=== PATIENT | male | born 1955 | race Hispanic/Latino ===

== ENCOUNTER 2017-11-04 20:48 | Inpatient (IN) | payer MEDICAID ==
[2017-11-04] MEDS ORDERED: Sodium Chloride 0.9% 1,000 ML IV STA ×2 (21:27→23:42)
--- NOTE | 2017-11-04 22:19 | ED PDOC ---
Arrival/HPI - General Historian: Patient, Family - History of Present Illness Time/Duration: 4-6 hours Symptom Onset: Sudden Symptom Course: Unchanged Activities at Onset: Rest <Rudolph Madsen - Last Filed: 11/04/17 23:36> <Baldemar Gracia - Last Filed: 11/05/17 00:26> - General Chief Complaint: Syncope Time Seen by Provider: 11/04/17 20:54 - History of Present Illness Narrative History of Present Illness (Text): 11/04/17 22:15 Patient is 62M with a PMH of alcoholic cirrhosis comes to the ED after a fall 2/ 2 to syncope episode at home. Patient states that he was standing at home, felt dizzy, passed out and hit his head on a vase. His roommate came home and called the ambulance. Patient denies any palpitations, chest pain, blurry vision, weakness or numbness. Denies any prior episodes. Patient was unconscious for an unknown amount of time. (Rudolph Madsen) Past Medical History - Infectious Disease Hx of Infectious Diseases: None - Psychiatric Hx Substance Use: No - Anesthesia Hx Anesthesia: No <Rudolph Madsen - Last Filed: 11/04/17 23:36> - Provider Review Nursing Documentation Reviewed: Yes <Baldemar Gracai - Last Filed: 11/05/17 00:26> Family/Social History Family/Social History: Unknown Family HX Smoking Status: Unknown If Ever Smoked Hx Alcohol Use: Yes Frequency of alcohol use: Few days per week Hx Substance Use: No <Rudolph Madsen - Last Filed: 11/04/17 23:36> - Physician Review Nursing Documentation Reviewed: Yes Family/Social History: Unknown Family HX <Baldemar Gracia - Last Filed: 11/05/17 00:26> Allergies/Home Meds <Rudolph Madsen - Last Filed: 11/04/17 23:36> <Baldemar Gracia - Last Filed: 11/05/17 00:26> Allergies/Adverse Reactions: Allergies No Known Allergies Allergy (Verified 10/29/17 15:51) Home Medications: Home Meds Medication Instructions Recorded Confirmed Unobtainable 11/04/17 11/04/17 Review of Systems - Review of Systems Constitutional: Normal Eyes: absent: Vision Changes, Photophobia ENT: Normal Respiratory: Normal. absent: SOB, Cough Cardiovascular: Normal. absent: Chest Pain Gastrointestinal: Normal. absent: Abdominal Pain Genitourinary Male: Normal Musculoskeletal: Normal Skin: Normal Neurological: Dizziness. absent: Headache Endocrine: Normal Hemo/Lymphatic: Normal Psychiatric: Normal <Rudolph Madsen - Last Filed: 11/04/17 23:36> - Physician Review All systems were reviewed & negative as marked: Yes <SamiaBaldemar - Last Filed: 11/05/17 00:26> Physical Exam Temperature: Afebrile Blood Pressure: Normal Pulse: Regular Respiratory Rate: Normal Appearance: Positive for: Well-Appearing, Comfortable. No: Non-Toxic Pain Distress: None Mental Status: Positive for: Alert and Oriented X 3 - Systems Exam Head: Present: Laceration (2 cm laceration on the posterior aspect of the skull) Pupils: Present: PERRL Extroacular Muscles: Present: EOMI Conjunctiva: Present: Normal Mouth: Present: Moist Mucous Membranes Neck: Present: Normal Range of Motion Respiratory/Chest: Present: Clear to Auscultation Cardiovascular: Present: Regular Rate and Rhythm, Normal S1, S2. No: Murmurs Abdomen: Present: Normal Bowel Sounds. No: Tenderness, Distention, Peritoneal Signs Upper Extremity: Present: Normal Inspection. No: Cyanosis, Edema Lower Extremity: Present: Normal Inspection. No: Edema Neurological: Present: GCS=15, CN II-XII Intact, Speech Normal, Motor Func Grossly Intact, Normal Sensory Function, Norm Deep Tendon Reflexes, Memory Normal Skin: Present: Warm, Dry, Normal Color. No: Rashes Psychiatric: Present: Alert, Oriented x 3 <Rudolph Madsen - Last Filed: 11/04/17 23:36> Medical Decision Making <Rudolph Madsen - Last Filed: 11/04/17 23:36> <SamiaBaldemar - Last Filed: 11/05/17 00:26> ED Course and Treatment: 11/04/17 22:23 patient with syncope and head laceration after hitting his head * head CT * cbc, cmp, cxr, ekg, alcohol level, UDS * placed 4 scarlett in the laceration on the back of the head 11/04/17 23:36 * potassium elevated at 7.2 with Cr. 4.4 * gave insulin, albuterol, bicarb and kayexelate * admit to hospitalist, spoke with medical biller coder (Rudolph Madsen) Impression: Pt seen and evaluated with medical biller coder. Pt, whose past medical history includes alcoholic cirrhosis, presented s/p syncopal episode and fall prior to arrival. Aware and agree with HPI, clinical findings, plan, and management. Laceration repair performed by resident under my supervision. Plan: -- CT Head w/o contrast -- EKG -- Chest X-ray -- Labs, alcohol level -- Urinalysis -- IV fluids -- Reassess and disposition 11/04/17 23:[address] Navarro and medical biller coder director construction services. Aware and agree with plan. Accepts pt in to hospitalist service. (Baldemar Gracia) - Lab Interpretations Lab Results: 11/04/17 21:47 11/04/17 21:47 Lab Results 11/04/17 21:47: Lactate Dehydrogenase 899 H, Total Creatine Kinase 127, Troponin I 0.06 11/04/17 21:47: Alcohol, Quantitative < 10 11/04/17 21:47: Sodium 122 L, Potassium 7.2 H*, Chloride 88 L, Carbon Dioxide 21 , Anion Gap 21 H, BUN 142 H*, Creatinine 4.4 H, Est GFR ( Amer) 17, Est GFR (Non-Af Amer) 14, Random Glucose 101, Calcium 10.6 H, Total Bilirubin 5.6 H , AST 99 H, ALT 49, Alkaline Phosphatase 83, Total Protein 6.8, Albumin 3.5, Globulin 3.3, Albumin/Globulin Ratio 1.0 L 11/04/17 21:47: WBC 8.4, RBC 2.70 L, Hgb 9.4 L, Hct 26.0 L, MCV 96.3, MCH 34.8, MCHC 36.2, RDW 17.0 H, Plt Count 175, MPV 9.6, Gran % 78.5 H, Lymph % (Auto) 9.8 L, [place] % (Auto) 11.7 H, Eos % (Auto) 0.0 L, Baso % (Auto) 0.0, Gran # 6.59 H, Lymph # (Auto) 0.8 L, [place] # (Auto) 1.0 H, Eos # (Auto) 0.0, Baso # (Auto) 0.00 - RAD Interpretation Radiology Orders: 11/04/17 21:27 HEAD W/O CONTRAST [CT] Stat CHEST PORTABLE [RAD] Stat - Medication Orders Current Medication Orders: Sodium Chloride (Sodium Chloride 0.9%) 1,000 mls @ 100 mls/hr IV .Q10H ALEXIS Sodium Chloride (Sodium Chloride 0.9%) 1,000 mls @ 999 mls/hr IV .Q1H1M STA Stop: 11/05/17 00:42 Discontinued Medications Acetaminophen (Tylenol 325mg Tab) 650 mg PO STAT STA Stop: 11/04/17 22:59 Albuterol Sulfate (Albuterol 0.5% Inhal Gisela (2.5 Mg/0.5 Ml) Ud) 10 mg IH STAT STA Stop: 11/04/17 23:20 Dextrose (Dextrose 50% Inj) 50 ml IVP ONCE ONE Stop: 11/04/17 23:20 Sodium Chloride (Sodium Chloride 0.9%) 1,000 mls @ 999 mls/hr IV .Q1H1M STA Stop: 11/04/17 22:27 Last Admin: 11/04/17 22:40 Dose: 999 mls/hr eMAR Start Stop Document 11/04/17 22:40 GMD (Rec: 11/04/17 22:40 GMD [id number]) Intravenous Solution Start Date 11/04/17 Start Time 22:40 End Date 11/04/17 End time 23:40 Total Infusion Time 60 Sodium Chloride (Sodium Chloride 0.9%) 1,000 mls @ 999 mls/hr IV .Q1H1M STA Stop: 11/05/17 00:21 Insulin Human Regular (Humulin R) 10 units IVP STAT STA Stop: 11/04/17 23:20 Sodium Bicarbonate (Sodium Bicarbonate 8.4% (50 Meq) Syringe) 50 meq IVP ONCE ONE Stop: 11/04/17 23:20 Sodium Polystyrene Sulfonate (Kayexalate Susp) 30 gm PO ONCE ONE Stop: 11/04/17 23:21 - PA / MAIL SORTING SUPERVISOR / Resident Statement MD/DO has reviewed & agrees with the documentation as recorded. MD/DO has examined the patient and agrees with the treatment plan. <Rudolph Madsen - Last Filed: 11/04/17 23:36> Disposition/Present on Arrival - Present on Arrival Any Indicators Present on Arrival: No History of DVT/PE: No History of Uncontrolled Diabetes: No Urinary Catheter: No History of Decub. Ulcer: No History Surgical Site Infection Following: None - Disposition Have Diagnosis and Disposition been Completed?: Yes Disposition Time: 23:40 Patient Plan: Admission <Rudolph Madsen - Last Filed: 11/04/17 23:36> <Baldemar Gracia - Last Filed: 11/05/17 00:26> - Disposition Diagnosis: Hyperkalemia, Acute kidney failure, Fall, Laceration of head, Syncope Disposition: HOSPITALIZED Patient Problems: Current Active Problems Problem Status Onset Acute kidney failure Acute Fall Acute Hyperkalemia Acute Laceration of head Acute Syncope Acute Condition: GUARDED Discharge Instructions (ExitCare): Syncope (ED) Additional Instructions: remove scarlett in 5 days. Referrals: PCP,NO [Primary Care Provider] - Follow up with primary Forms: [employer] ([place]ian)
[2017-11-04 22:45] LABS: GRAN # 6.59 (1.4-6.5); GRAN % 78.5 % (50.0-68.0); HEMOGLOBIN 9.4 g/dL (14.0-18.0); LYMPH # 0.8 (1.2-3.4); LYMPH % 9.8 % (22.0-35.0); MEAN CELL VOLUME 96.3 fl (80.0-105.0); MEAN CORPUSCULAR HEMOGLOBIN 34.8 pg (25.0-35.0); MEAN CORPUSCULAR HGB CONC 36.2 g/dl (31.0-37.0); MEAN PLATELET VOLUME 9.6 fl (7.0-11.0); MONO % 11.7 % (1.0-6.0); RBC 2.7 10^6/uL (3.5-6.1); WHITE BLOOD COUNT 8.4 10^3/ul (4.5-11.0)
[2017-11-04 23:14] LABS: ALBUMIN 3.5 g/dL (3.0-4.8); CALCIUM 10.6 mg/dL (8.4-10.5)
[2017-11-04] MEDS ORDERED: Dextrose 50% SYRINGE Inj (50 ml) IVP ONE (23:19)
[2017-11-04 23:46] LABS: TROPONIN I 0.06 ng/mL
[2017-11-05] MEDS: Sod Polystyrene Sulf 15 gm/60 ml Susp PO ONE ×2 (00:45→05:54)
[2017-11-05] MEDS: Albuterol 0.5% Inhal Sol (2.5 mg/0.5 ml) UD IH STA ×2 (00:51→05:51)
[2017-11-05] MEDS: Sodium Chloride 0.9% 1,000 ML IV STA ×3 (00:52→05:54)
[2017-11-05] MEDS: Sodium Bicarbonate (8.4%) 50 Meq Syringe IVP ONE ×2 (00:53→05:54)
[2017-11-05] MEDS: Insulin Regular 1 UNITS/0.01 ML ML IVP STA ×3 (00:54→06:36)
--- NOTE | 2017-11-05 01:32 | CT ---
EXAM: CT Head Without Intravenous Contrast CLINICAL HISTORY: 62 years old, male; Signs and symptoms; Syncope and collapse TECHNIQUE: Axial computed tomography images of the head/brain without intravenous contrast. All CT scans at this facility use one or more dose reduction techniques, viz.: automated exposure control; ma/kV adjustment per patient size (including targeted exams where dose is matched to indication; i.e. head); or iterative reconstruction technique. Coronal and sagittal reformatted images were created and reviewed. COMPARISON: No relevant prior studies available. FINDINGS: Brain: Moderate atrophy. No intracranial hemorrhage. No mass. Minimal decreased attenuation within periventricular white matter. No definite edema. Ventricles: No hydrocephalus. Bones/joints: No acute fracture. Soft tissues: Mild scalp swelling. Skin scarlett. Dermal calcifications. Vasculature: Mild atherosclerotic disease of intracranial arteries. Sinuses: Mucosal thickening of visualized RIGHT ethmoid sinus. Mastoid air cells: No mastoid effusion. Orbits: Unremarkable as visualized. IMPRESSION: 1. Nonspecific white matter changes. Acute infarction may be CT occult within first 24 hours. If a focal deficit persists, consider followup CT or MRI for further evaluation. 2. Incidental/non-acute findings are described above.
[2017-11-05] MEDS: Sodium Chloride 0.9% 1,000 ML IV SCH ×3 (01:52→13:40)
[2017-11-05] MEDS: Metoprolol 1 mg/ml Inj IVP STA ×2 (01:53→05:54)
[2017-11-05 02:49] LABS: IRON 74 ug/dL (45-180)
[2017-11-05 02:58] LABS: % IRON SATURATION 39 % (20-55); TOTAL IRON BINDING CAPACITY 192 ug/dL (261-462)
[2017-11-05 03:53] LABS: URINE BILIRUBIN NEGATIVE (NEGATIVE); URINE BLOOD MODERATE (NEGATIVE); URINE GLUCOSE (UA) NEGATIVE (NEGATIVE); URINE LEUKOCYTE ESTERASE NEGATIVE Leu/uL (NEGATIVE); URINE PROTEIN 30 mg/dL (<30 mg/dL); URINE UROBILINOGEN 0.2 E.U./dL (<1 E.U./dL)
--- NOTE | 2017-11-05 03:53 | CP.PCM.HP ---
<George Cali - Last Filed: 11/05/17 03:34> History of Present Illness - History of Present Illness History of Present Illness: CC: Syncope Pt is a 62 yo M with PMH of alcoholic cirrhosis presents to [facility] due to fall 2/2 to syncopal episode at home. Pt states that he had been feeling dizzy, possibly from standing up too quickly, when he passed out and hit the back of his head on a vase. Pt's roommate called EMS. Pt does not recall how long he was unconscious for. In the ED, clau were placed for laceration to occipital region of patient's head. Pt still complains of some head pain, but denies current dizziness, change in vision, hearing, smell, shortness of breath, chest pain, weakness, numbness, fever, or CORTES. Patient states that he has had several admissions at another hospital for ascites and has had seven paracenteses overall. Pt also states that on prior admissions he has had many electrolyte abnormalities that had to be corrected. PMH: alcoholic cirrhosis Surg: Paracentesis x7 All: NKDA FHx: Father lung CA, Mother CHF SH: Admits to 1 bottle whiskey/daily (last drink 07/19/17), 3 cig/day for 20 yrs ; denies illicit drug use Present on Admission - Present on Admission Any Indicators Present on Admission: No Review of Systems - Review of Systems Review of Systems: 12 point ROS reviewed and is negative other than what is stated in HPI. Past Patient History - Infectious Disease Hx of Infectious Diseases: None - Past Social History Smoking Status: Unknown If Ever Smoked - PSYCHIATRIC Hx Substance Use: No - ANESTHESIA Hx Anesthesia: No Meds Allergies/Adverse Reactions: Allergies Allergy/AdvReac Type Severity Reaction Status Date / Time No Known Allergies Allergy Verified 10/29/17 15:51 Physical Exam - Constitutional Appears: No Acute Distress - Head Exam Head Exam: NORMAL INSPECTION - Eye Exam Eye Exam: Normal appearance - ENT Exam ENT Exam: Mucous Membranes Dry - Neck Exam Neck exam: Positive for: Normal Inspection - Respiratory Exam Respiratory Exam: Clear to Auscultation Bilateral. absent: Rales, Rhonchi, Wheezes - Cardiovascular Exam Cardiovascular Exam: Tachycardia, +S1, +S2. absent: Diastolic murmur, Gallop, Rubs, Systolic Murmur - GI/Abdominal Exam GI & Abdominal Exam: Distended, Normal Bowel Sounds, Soft, Tenderness. absent: Guarding, Rebound Additional comments: Positive fluid wave, healing site in RLQ from prior paracentesis with some surrounding ecchymosis - Extremities Exam Extremities exam: Positive for: normal inspection Additional comments: No palmar erythema - Back Exam Back exam: NORMAL INSPECTION - Neurological Exam Neurological exam: Alert, CN II-XII Intact, Oriented x3 - Skin Skin Exam: Petechiae (chest) Additional comments: No spider angiomas or caput medusa noted Results - Vital Signs Recent Vital Signs: Last Vital Signs Temp 97.6 F 11/05/17 00:15 Pulse 90 11/05/17 02:28 Resp 16 11/05/17 02:28 BP 104/68 11/05/17 02:28 Pulse Ox 100 11/05/17 02:28 - Labs Result Diagrams: 11/04/17 21:47 11/04/17 21:47 Labs: Laboratory Results - last 24 hr 11/04/17 11/04/17 11/04/17 21:47 21:47 21:47 WBC 8.4 RBC 2.70 L Hgb 9.4 L Hct 26.0 L MCV 96.3 MCH 34.8 MCHC 36.2 RDW 17.0 H Plt Count 175 MPV 9.6 Gran % 78.5 H Lymph % (Auto) 9.8 L [place] % (Auto) 11.7 H Eos % (Auto) 0.0 L Baso % (Auto) 0.0 Gran # 6.59 H Lymph # (Auto) 0.8 L [place] # (Auto) 1.0 H Eos # (Auto) 0.0 Baso # (Auto) 0.00 Retic Count Sodium 122 L Potassium 7.2 H* Chloride 88 L Carbon Dioxide 21 Anion Gap 21 H BUN 142 H* Creatinine 4.4 H Est GFR ( Amer) 17 Est GFR (Non-Af Amer) 14 Random Glucose 101 Calcium 10.6 H Phosphorus Magnesium Iron TIBC % Saturation Total Bilirubin 5.6 H AST 99 H ALT 49 Alkaline Phosphatase 83 Ammonia Lactate Dehydrogenase Total Creatine Kinase Troponin I Total Protein 6.8 Albumin 3.5 Globulin 3.3 Albumin/Globulin Ratio 1.0 L Alcohol, Quantitative < 10 11/04/17 11/05/17 11/05/17 21:47 02:20 02:20 WBC RBC Hgb Hct MCV MCH MCHC RDW Plt Count MPV Gran % Lymph % (Auto) [place] % (Auto) Eos % (Auto) Baso % (Auto) Gran # Lymph # (Auto) [place] # (Auto) Eos # (Auto) Baso # (Auto) Retic Count 2.53 H Sodium Potassium Chloride Carbon Dioxide Anion Gap BUN Creatinine Est GFR ( Amer) Est GFR (Non-Af Amer) Random Glucose Calcium Phosphorus Magnesium Iron TIBC % Saturation Total Bilirubin AST ALT Alkaline Phosphatase Ammonia 73 H Lactate Dehydrogenase 899 H Total Creatine Kinase 127 Troponin I 0.06 Total Protein Albumin Globulin Albumin/Globulin Ratio Alcohol, Quantitative 11/05/17 11/05/17 02:20 02:20 WBC RBC Hgb Hct MCV MCH MCHC RDW Plt Count MPV Gran % Lymph % (Auto) [place] % (Auto) Eos % (Auto) Baso % (Auto) Gran # Lymph # (Auto) [place] # (Auto) Eos # (Auto) Baso # (Auto) Retic Count Sodium Potassium Chloride Carbon Dioxide Anion Gap BUN Creatinine Est GFR ( Amer) Est GFR (Non-Af Amer) Random Glucose Calcium Phosphorus 6.6 H Magnesium 3.0 H Iron 74 TIBC 192 L % Saturation 39 Total Bilirubin AST ALT Alkaline Phosphatase Ammonia Lactate Dehydrogenase Total Creatine Kinase Troponin I Total Protein Albumin Globulin Albumin/Globulin Ratio Alcohol, Quantitative Assessment & Plan - Assessment and Plan (Free Text) Assessment: 62 yo M with PMH of alcoholic cirrhosis admitted for syncopal episode and several electrolyte abnormalities. Plan: 1. Syncope - Cardiology consulted - Neurology consulted - Clau in occipital region placed in ED - Head CT showed nonspecific white matter changes, no intracranial bleed - Troponin x3 trend - Carotid doppler ordered - Echo ordered - Orthostatics ordered 2. Electrolyte Abnormalities - Hyponatremia, hypochloremia Given 3L NS in ED Cont maintenance NS - Hyperkalemia Given insulin and d50, kayxelate, and bicarb in ED Calcium gluconate ordered EKG: no signs of elevated T-waves Recheck BMP q4h - Elevated magnesium, phos likely 2/2 dehydration - Cont to monitor and treat as needed 3. CAMILO - Nephrology consulted - BUN/Cr consistent with prerenal nephropathy likely 2/2 severe dehydration - 3L NS given in ED, cont maintenance at 100 cc/hr - Urine Na, Cr, urea, osmolality ordered 4. Alcoholic cirrhosis - GI consulted - Most recent ascites fulid analysis on 10/29/17 showed no signs of SBP as PMN 26 - Elevated ammonia levels, no signs of AMS - Lactulose and rifaximin ordered 5. Anemia - Normocytic - Likely 2/2 chronic disease - Iron studies, B12, folate, retic ordered - Elevated LDH and total bilirubin - Haptoglobin and direct bilirubin ordered - Peripheral smear ordered GI/DVT PPX - Protonix - SCDs Pt seen and discussed in detail with Dr. Navarro. Oscar Cali, PGY1 <Christiana Navarro - Last Filed: 11/05/17 06:34> Results - Vital Signs Recent Vital Signs: Last Vital Signs Temp 97.4 F L 11/05/17 04:06 Pulse 91 H 11/05/17 04:06 Resp 19 11/05/17 04:06 BP 94/55 L 11/05/17 04:06 Pulse Ox 100 11/05/17 02:28 - Labs Result Diagrams: 11/05/17 05:30 11/05/17 02:20 Labs: Laboratory Results - last 24 hr 11/05/17 11/05/17 11/05/17 02:20 02:20 02:20 WBC RBC Hgb Hct MCV MCH MCHC RDW Plt Count MPV Gran % Lymph % (Auto) [place] % (Auto) Eos % (Auto) Baso % (Auto) Gran # Lymph # (Auto) [place] # (Auto) Eos # (Auto) Baso # (Auto) Retic Count 2.53 H Sodium Potassium Chloride Carbon Dioxide Anion Gap BUN Creatinine Est GFR ( Amer) Est GFR (Non-Af Amer) Random Glucose Calcium Phosphorus 6.6 H Magnesium 3.0 H Iron TIBC % Saturation Direct Bilirubin Ammonia 73 H Troponin I Urine Color Urine Appearance Urine pH Ur Specific [place] Urine Protein Urine Glucose (UA) Urine Ketones Urine Blood Urine Nitrate Urine Bilirubin Urine Urobilinogen Ur Leukocyte Esterase Urine RBC Urine WBC Ur Epithelial Cells Hyaline Casts 11/05/17 11/05/17 11/05/17 02:20 02:20 02:45 WBC RBC Hgb Hct MCV MCH MCHC RDW Plt Count MPV Gran % Lymph % (Auto) [place] % (Auto) Eos % (Auto) Baso % (Auto) Gran # Lymph # (Auto) [place] # (Auto) Eos # (Auto) Baso # (Auto) Retic Count Sodium 122 L Potassium 6.3 H* Chloride 92 L Carbon Dioxide 19 L Anion Gap 18 BUN 140 H* Creatinine 4.0 H Est GFR ( Amer) 18 Est GFR (Non-Af Amer) 15 Random Glucose 115 H Calcium 9.9 Phosphorus Magnesium Iron 74 TIBC 192 L % Saturation 39 Direct Bilirubin Ammonia Troponin I 0.07 Urine Color Yellow Urine Appearance Sl cloudy Urine pH 6.0 Ur Specific [place] 1.020 Urine Protein 30 H Urine Glucose (UA) Negative Urine Ketones Negative Urine Blood Moderate H Urine Nitrate Negative Urine Bilirubin Negative Urine Urobilinogen 0.2 Ur Leukocyte Esterase Negative Urine RBC 2 - 5 Urine WBC 0 - 2 Ur Epithelial Cells 0 - 2 Hyaline Casts 0 - 2 11/05/17 11/05/17 05:30 05:30 WBC 10.0 RBC 2.37 L Hgb 8.3 L Hct 22.7 L MCV 95.8 MCH 35.0 MCHC 36.6 RDW 17.0 H Plt Count 148 MPV 9.1 Gran % 73.2 H Lymph % (Auto) 11.8 L [place] % (Auto) 14.8 H Eos % (Auto) 0.1 L Baso % (Auto) 0.1 Gran # 7.34 H Lymph # (Auto) 1.2 [place] # (Auto) 1.5 H Eos # (Auto) 0.0 Baso # (Auto) 0.01 Retic Count Sodium Potassium Chloride Carbon Dioxide Anion Gap BUN Creatinine Est GFR ( Amer) Est GFR (Non-Af Amer) Random Glucose Calcium Phosphorus Magnesium Iron TIBC % Saturation Direct Bilirubin 1.7 H Ammonia Troponin I Urine Color Urine Appearance Urine pH Ur Specific [place] Urine Protein Urine Glucose (UA) Urine Ketones Urine Blood Urine Nitrate Urine Bilirubin Urine Urobilinogen Ur Leukocyte Esterase Urine RBC Urine WBC Ur Epithelial Cells Hyaline Casts Attending/Attestation - Attestation I have personally seen and examined this patient.: Yes I have fully participated in the care of the patient.: Yes I have reviewed all pertinent clinical information: Yes Notes (Text): 11/05/17 06:33 Patient was seen when he was in the ER. Agree with history , physical examination, assessment and plan. syncope. Dizziness. Hyperkalemia. Acute renal failure. Loss of consciousness. Cirrhosis of liver. Alcohol abuse. Laceration of occipital scalp. Anemia. Ascites. Sinus tachcardia.
[2017-11-05 04:16] LABS: URINE APPEARANCE SL CLOUDY (CLEAR); URINE COLOR YELLOW (YELLOW)
[2017-11-05 04:20] LABS: URINE EPITHELIAL CELLS 0 - 2 /hpf (0-5); URINE HYALINE CAST 0 - 2 /hpf; URINE WBC 0 - 2 /hpf (0-6)
[2017-11-05 04:21] LABS: TROPONIN I 0.07 ng/mL
[2017-11-05 05:31] LABS: CALCIUM 9.9 mg/dL (8.4-10.5)
[2017-11-05] MEDS ORDERED: Dextrose 50% SYRINGE Inj (50 ml) IVP ONE (05:41)
[2017-11-05] MEDS ORDERED: Sod Polystyrene Sulf 15 gm/60 ml Susp PO STA (05:41)
[2017-11-05] MEDS ORDERED: Insulin Regular 1 UNITS/0.01 ML ML SC STA (05:41)
[2017-11-05] MEDS ORDERED: Sodium Bicarbonate (8.4%) 50 Meq Syringe IVP STA (05:42)
[2017-11-05] MEDS ORDERED: Insulin Regular 1 UNITS/0.01 ML ML IVP STA (05:56)
--- NOTE | 2017-11-05 06:09 | PCM.PROC ---
Procedures Attestation:: I certify that I have explained the specified Operation(s) or Procedure(s), risks, benefits and reasonable alternatives to the Patient and/or other person responsible. The opportunity was given to ask questions and all questions answered - Laceration simple, single layer linear deep structures intact scalp other other other other other other Site: scalp Size (cm): 2 Description: linear Depth: simple, single layer Skin layer closed with: other (4 scarlett)
[2017-11-05 06:21] LABS: BASO # 0.01 K/mm3 (0.0-2.0); BASO % 0.1 % (0.0-3.0); EOS % 0.1 % (1.5-5.0); GRAN # 7.34 (1.4-6.5); GRAN % 73.2 % (50.0-68.0); HEMOGLOBIN 8.3 g/dL (14.0-18.0); LYMPH # 1.2 (1.2-3.4); LYMPH % 11.8 % (22.0-35.0); MEAN CELL VOLUME 95.8 fl (80.0-105.0); MEAN CORPUSCULAR HGB CONC 36.6 g/dl (31.0-37.0); MEAN PLATELET VOLUME 9.1 fl (7.0-11.0); MONO # 1.5 (0.1-0.6); MONO % 14.8 % (1.0-6.0); RBC 2.37 10^6/uL (3.5-6.1)
--- NOTE | 2017-11-05 08:26 | RAD ---
HISTORY: syncope COMPARISON: No prior. FINDINGS: LUNGS: No active pulmonary disease. PLEURA: No significant pleural effusion identified, no pneumothorax apparent. CARDIOVASCULAR: Normal. OSSEOUS STRUCTURES: No significant abnormalities. VISUALIZED UPPER ABDOMEN: Normal. OTHER FINDINGS: None. IMPRESSION: No active disease.
[2017-11-05] MEDS ORDERED: Albumin Human 25% (12.5 gm/50 ml) IV SCH (09:15)
--- NOTE | 2017-11-05 11:26 | CON ---
DATE: 11/05/2017 CONSULTATION INDICATIONS: A 62-year-old man with syncope in the setting of acute renal failure and hyperkalemia with a history of alcoholic cirrhosis and ascites with recent large volume paracentesis. He felt dizzy at home and fell to the floor. He lacerated his scalp. It is unclear how long he has been on the floor. He was brought to the emergency room after a friend found him. Subsequently, he has remained on telemetry. His scalp laceration was sutured. He is being treated for hyperkalemia in the setting of acute renal failure. He has known alcoholic cirrhosis with numerous paracentesis to control abdominal ascites. There is no chest pain, shortness of breath, orthopnea, PND, fever, chills, sputum production, hemoptysis, nausea, vomiting, diarrhea, constipation, melena. PAST MEDICAL HISTORY: Notable for known alcoholic cirrhosis. He has been evaluated in other hospitals. He has had numerous paracentesis done. He was a heavy drinker until 07/2017. He is a smoker. There is no history of rheumatic fever, myocardial infarction, angina, congestive heart failure, arrhythmia, stroke, TIA, diabetes or gout. MEDICATIONS AT THE TIME OF ADMISSION: Not obtainable. CURRENT MEDICATION LIST: Includes lactulose, D50, calcium gluconate, albuterol, insulin, metoprolol, pantoprazole, octreotide. ALLERGIES: THERE ARE NO MEDICATION ALLERGIES. SOCIAL HISTORY: He is a smoker. He is a former daily drinker. He lives at home. He was ambulatory. FAMILY HISTORY: Noncontributory. His mother had congestive heart failure. REVIEW OF SYSTEMS: Ten-point review of systems is otherwise unremarkable. PHYSICAL EXAMINATION: GENERAL: He is a well-developed male, in no acute distress, lying in bed on telemetry. VITAL SIGNS: Notable for sinus rhythm at 91 beats per minute. He is afebrile, blood pressure 104/68, respiratory rate 16, O2 sat 100% on room air. HEENT: Reveals no neck vein distention, thyromegaly or carotid bruits. Mucous membranes moist. Conjunctivae pale. NECK: Supple. LUNGS: Lung cortez clear. HEART: Examination of the heart revealed normal first and second heart sounds. ABDOMEN: Benign. There is ascites present. No mass, organomegaly, tenderness, rebound or guarding. EXTREMITIES: Revealed no cyanosis, clubbing or edema. NEUROLOGIC: He is awake, alert, oriented. SKIN: Warm and dry. No rash or cellulitis. PSYCHIATRIC: Normal as to mood and affect. LABORATORY DATA AND IMAGING: An EKG showed sinus rhythm with peaked T-waves in precordial leads. Chest x-ray shows no active disease. CT scan of the head showed nonspecific white matter changes, etc. White count normal. Hemoglobin 9.4, repeat 8.3; hematocrit 26, repeat 22.7; platelet count 175,000, repeat 148,000. Sodium 122; potassium 7.2, repeat 6.3. BUN 142, creatinine 4.4, repeat 140 and 4.0 respectively. Magnesium is 3.0. LFTs are mildly abnormal. Ammonia level is high. CK 127, troponin 0.06 and 0.07. Alcohol is less than 10. IMPRESSION: Kofi Dupont is a 62-year-old man with severe alcoholic liver disease, ascites, who presents with a syncopal episode at home, fall, head trauma and scalp laceration. Etiology of the fall is not clear, but may have been vasovagal or related to his multiple medical problems including renal failure and hyperkalemia and recnt larger volume paracentesis.. There is no evidence of acute myocardial infarction. No evidence of arrhythmia. He is getting evaluated by Gastroenterology, Neurology and Renal. He has been treated for hyperkalemia. I will check an echocardiogram. I will repeat his EKG. We will check him for postural vital signs and check stool for occult blood. I will follow along with you. I will make additional recommendations based on his clinical course. Edward Prater MD MARYELLEN
[2017-11-05] MEDS: Albumin Human 25% (12.5 gm/50 ml) IV SCH ×3 (11:27→18:16)
[2017-11-05 11:37] LABS: EOS % 0.3 % (1.5-5.0); GRAN # 7.62 (1.4-6.5); GRAN % 74.8 % (50.0-68.0); HEMOGLOBIN 8.1 g/dL (14.0-18.0); LYMPH # 1.2 (1.2-3.4); LYMPH % 12.1 % (22.0-35.0); MEAN CELL VOLUME 96.5 fl (80.0-105.0); MEAN CORPUSCULAR HEMOGLOBIN 35.4 pg (25.0-35.0); MEAN CORPUSCULAR HGB CONC 36.7 g/dl (31.0-37.0); MEAN PLATELET VOLUME 9.5 fl (7.0-11.0); MONO # 1.3 (0.1-0.6); MONO % 12.8 % (1.0-6.0); RBC 2.29 10^6/uL (3.5-6.1); RED CELL DISTRIBUTION WIDTH 17.2 % (11.5-14.5); WHITE BLOOD COUNT 10.2 10^3/ul (4.5-11.0)
[2017-11-05 11:44] LABS: INR 1.55 (0.93-1.08); PARTIAL THROMBOPLASTIN TIME 32.2 Seconds (25.1-36.5)
[2017-11-05 11:50] LABS: ALB/GLOB RATIO 0.9 (1.1-1.8); ALBUMIN 2.8 g/dL (3.0-4.8); CALCIUM 9.5 mg/dL (8.4-10.5); TROPONIN I 0.06 ng/mL
[2017-11-05 12:20] LABS: FOLATE > 20.0 ng/mL
[2017-11-05 14:44] LABS: CREATININE,RANDOM URINE 196 mg/dL
--- NOTE | 2017-11-05 14:50 | US ---
PROCEDURE: Bilateral carotid artery duplex ultrasound HISTORY: Carotid stenosis syncope PHYSICIAN(S): Alvaro Davis MD. TECHNIQUE: Duplex sonography and color-flow Doppler were used to evaluate the carotid bifurcations and limited segments of the vertebral arteries bilaterally. FINDINGS: There is mild smooth heterogeneous plaque noted at the carotid bifurcations bilaterally. The peak systolic velocity in the proximal right internal carotid artery is 73 cm/sec. This corresponds to a 20 to 39% proximal right ICA stenosis. Normal systolic velocities are noted in the proximal right external carotid artery. There is antegrade flow in the right vertebral artery. The peak systolic velocity in the proximal left internal carotid artery is 81 cm/sec. This corresponds to a 20 to 39% proximal left ICA stenosis. Normal systolic velocities are noted in the proximal left external carotid artery. There is antegrade flow in the left vertebral artery. IMPRESSION: 1. Bilateral 20-39% proximal ICA stenoses. 2. Antegrade flow in both vertebral arteries.
--- NOTE | 2017-11-05 15:29 | CARD ---
APPROVED REPORT EKG Measurement Heart [id number] <Conclusion> Sinus rhythm with frequent premature ventricular complexes Septal infarct, age undetermined Possible Lateral infarct, age undetermined Abnormal ECG
--- NOTE | 2017-11-05 16:13 | CP.PCM.CON ---
History of Present Illness - History of Present Illness History of Present Illness: Initial Nephrology Consultation: Assessment: critical Acute Kidney Injury (N17.9) likely due to Type 1 Hepatorenal syndrome Anemia, Hyponatremia, Hyperkalemia, acidosis cirrhosis of liver with active smoker, etoh abuse Plan maintain hemodynamics stable. Patient not on ACEI/ARB due to CAMILO and high K. avoid aldactone as well will start octreotide, midodrine and albumin. medical management of hyperkalemia d/w pt about prognosis, condition and likely need for dialysis soon. pt will accept HD if needed. pt may need renal replacement therapy soon but overall prognosis poor. consider palliative care Monitor Input/Output, daily weights and renal function with basic metabolic panel avoid correction in serum Na >6-8 meq/24 hrs avoid large volume paracentesis Dose meds/antibiotics for reduced GFR. Avoid fleets enema/magnesium based laxatives. Avoid nephrotoxins/NSAIDs/ iodinated contrast (unless needed emergently) Glycemic control Further work up/management as per primary team Thanks for allowing me to participate in care of your patient. Will follow patient with you. Please call if any Qs. d/w team Dr Lawrence Youngblood Office: [phone] Chief Complaint; syncope HPI: Pt is a 62 M with hx of cirrhosis, chronic etoh abuse and active smoker presented with complaints of fall and dizzziness, syncope. found to have severe CAMILO and renal consulted Denies OTC/herbal meds or NSAIDs No recent iodinated contrast exposure. Noted obvious episodes of low BP. says had last alcohol drink in jul 2017 recently had large volume paracentesis ROS: Cardiovascular: No chest pain. Pulmonary: No shortness of breath Gastrointestinal: denies abdominal pain No nausea. No vomiting. Genitourinary: No pain while urinating. Denies blood in urine. reports decreased UOP All other negative Physical Examination: General Appearance: Comfortable, in no acute respiratory distress, co-operative . ill appearing and debilitated, facial muscles wasted Vitals reviewed and noted as below Head; Atraumatic, normocephalic ENT: no ulcers no thrush. Tongue is midline. Oropharynx: no rash or ulcers. EYES: Pupils are equal, round and reactive to light accommodation. Eye muscles and extraocular movement intact. Sclera is anicteric. Neck; supple no lymphadenopathy, no thyromegaly or bruit Lungs: Normal respiratory rate/effort. Breath sounds bilateral equal and clear Heart: Normal rate. s1s2 normal. No rub or gallop. Extremities: no edema. No varicose veins. chronic venosus stasis changes in legs Neurological: Patient is alert, awake and oriented to person, place and time. No focal deficit. Strength bilateral appropriate and equal. has asterixis Skin: Warm and dry. Normal turgor. No rash. Palpitation: Normal elasticity for age. has spider angiomas Abdomen: Abdomen is soft. Bowel sounds +. There is no abdominal tenderness, no guarding/rigidity no organomegaly. distended/ascitic Psych: normal insight and flat affect/mood MSK: no joint tenderness or swelling. Digits and nails normal, no deformity : kidney or bladder not palpable Labs/imaging reviewed. Past medical history, past surgical history, family history, social history, allergy reviewed and noted as below Family hx: no hx of CKD. Rest non-contributory Past Patient History - Infectious Disease Hx of Infectious Diseases: None - Past Social History Smoking Status: Unknown If Ever Smoked - HEMATOLOGICAL/ONCOLOGICAL Hx Cirrhosis: Yes - MUSCULOSKELETAL/RHEUMATOLOGICAL Hx Falls: Yes - PSYCHIATRIC Hx Substance Use: No - ANESTHESIA Hx Anesthesia: No Meds Allergies/Adverse Reactions: Allergies Allergy/AdvReac Type Severity Reaction Status Date / Time No Known Allergies Allergy Verified 10/29/17 15:51 - Medications Medications: Current Medications Albumin Human (Albumin Human 25% (12.5 Gm/50 Ml)) 25 gm IV Q6 [facility] Stop: 11/06/17 06:01 Last Admin: 11/05/17 11:27 Dose: 25 gm Sodium Chloride (Sodium Chloride 0.9%) 1,000 mls @ 100 mls/hr IV .Q10H [facility] Last Admin: 11/05/17 13:40 Dose: Not Given Lactulose (Enulose) 20 gm PO HS [facility] Midodrine (Proamatine) 10 mg PO TID [facility] Last Admin: 11/05/17 11:28 Dose: 10 mg Octreotide Acetate (Sandostatin) 200 mcg SC Q8 [facility] Last Admin: 11/05/17 11:29 Dose: 200 mcg Pantoprazole Sodium (Protonix Inj) 40 mg IVP DAILY [facility] Last Admin: 11/05/17 11:29 Dose: 40 mg Rifaximin (Xifaxan) 550 mg PO BID [facility] PRN Reason: Protocol Last Admin: 11/05/17 11:29 Dose: 550 mg Results - Vital Signs Recent Vital Signs: Last Vital Signs Temp 97.4 F L 11/05/17 06:00 Pulse 91 H 11/05/17 06:00 Resp 20 11/05/17 06:00 BP 89/50 L 11/05/17 13:31 Pulse Ox 99 11/05/17 06:00 - Labs Result Diagrams: 11/05/17 11:10 11/05/17 11:10 Labs: Laboratory Results - last 24 hr 11/05/17 11/05/17 11/05/17 02:20 02:20 02:20 WBC RBC Hgb Hct MCV MCH MCHC RDW Plt Count MPV Gran % Lymph % (Auto) [place] % (Auto) Eos % (Auto) Baso % (Auto) Gran # Lymph # (Auto) [place] # (Auto) Eos # (Auto) Baso # (Auto) Retic Count 2.53 H Haptoglobin PT INR APTT Sodium Potassium Chloride Carbon Dioxide Anion Gap BUN Creatinine Est GFR ( Amer) Est GFR (Non-Af Amer) Random Glucose Serum Osmolality Calcium Phosphorus 6.6 H Magnesium 3.0 H Iron TIBC % Saturation Ferritin 566.0 Total Bilirubin Direct Bilirubin AST ALT Alkaline Phosphatase Ammonia 73 H Troponin I Total Protein Albumin Globulin Albumin/Globulin Ratio Vitamin B12 945 H Folate > 20.0 Urine Color Urine Appearance Urine pH Ur Specific [place] Urine Protein Urine Glucose (UA) Urine Ketones Urine Blood Urine Nitrate Urine Bilirubin Urine Urobilinogen Ur Leukocyte Esterase Urine RBC Urine WBC Ur Epithelial Cells Hyaline Casts Ur Random Creatinine Ur Random Sodium Ur Random Urea Nitrogn 11/05/17 11/05/17 11/05/17 02:20 02:20 02:20 WBC RBC Hgb Hct MCV MCH MCHC RDW Plt Count MPV Gran % Lymph % (Auto) [place] % (Auto) Eos % (Auto) Baso % (Auto) Gran # Lymph # (Auto) [place] # (Auto) Eos # (Auto) Baso # (Auto) Retic Count Haptoglobin PT INR APTT Sodium 122 L Potassium 6.3 H* Chloride 92 L Carbon Dioxide 19 L Anion Gap 18 BUN 140 H* Creatinine 4.0 H Est GFR ( Amer) 18 Est GFR (Non-Af Amer) 15 Random Glucose 115 H Serum Osmolality 312 H Calcium 9.9 Phosphorus Magnesium Iron 74 TIBC 192 L % Saturation 39 Ferritin Total Bilirubin Direct Bilirubin AST ALT Alkaline Phosphatase Ammonia Troponin I 0.07 Total Protein Albumin Globulin Albumin/Globulin Ratio Vitamin B12 Folate Urine Color Urine Appearance Urine pH Ur Specific [place] Urine Protein Urine Glucose (UA) Urine Ketones Urine Blood Urine Nitrate Urine Bilirubin Urine Urobilinogen Ur Leukocyte Esterase Urine RBC Urine WBC Ur Epithelial Cells Hyaline Casts Ur Random Creatinine Ur Random Sodium Ur Random Urea Nitrogn 11/05/17 11/05/17 11/05/17 02:45 05:30 05:30 WBC RBC Hgb Hct MCV MCH MCHC RDW Plt Count MPV Gran % Lymph % (Auto) [place] % (Auto) Eos % (Auto) Baso % (Auto) Gran # Lymph # (Auto) [place] # (Auto) Eos # (Auto) Baso # (Auto) Retic Count Haptoglobin < 20.0 L PT INR APTT Sodium Potassium Chloride Carbon Dioxide Anion Gap BUN Creatinine Est GFR ( Amer) Est GFR (Non-Af Amer) Random Glucose Serum Osmolality Calcium Phosphorus Magnesium Iron TIBC % Saturation Ferritin Total Bilirubin Direct Bilirubin 1.7 H AST ALT Alkaline Phosphatase Ammonia Troponin I Total Protein Albumin Globulin Albumin/Globulin Ratio Vitamin B12 Folate Urine Color Yellow Urine Appearance Sl cloudy Urine pH 6.0 Ur Specific [place] 1.020 Urine Protein 30 H Urine Glucose (UA) Negative Urine Ketones Negative Urine Blood Moderate H Urine Nitrate Negative Urine Bilirubin Negative Urine Urobilinogen 0.2 Ur Leukocyte Esterase Negative Urine RBC 2 - 5 Urine WBC 0 - 2 Ur Epithelial Cells 0 - 2 Hyaline Casts 0 - 2 Ur Random Creatinine Ur Random Sodium Ur Random Urea Nitrogn 11/05/17 11/05/17 11/05/17 05:30 11:10 11:10 WBC 10.0 10.2 RBC 2.37 L 2.29 L Hgb 8.3 L 8.1 L Hct 22.7 L 22.1 L MCV 95.8 96.5 MCH 35.0 35.4 H MCHC 36.6 36.7 RDW 17.0 H 17.2 H Plt Count 148 141 MPV 9.1 9.5 Gran % 73.2 H 74.8 H Lymph % (Auto) 11.8 L 12.1 L [place] % (Auto) 14.8 H 12.8 H Eos % (Auto) 0.1 L 0.3 L Baso % (Auto) 0.1 0.0 Gran # 7.34 H 7.62 H Lymph # (Auto) 1.2 1.2 [place] # (Auto) 1.5 H 1.3 H Eos # (Auto) 0.0 0.0 Baso # (Auto) 0.01 0.00 Retic Count Haptoglobin PT INR APTT Sodium 124 L Potassium 5.8 H* Chloride 92 L Carbon Dioxide 21 Anion Gap 17 BUN 146 H* Creatinine 4.0 H Est GFR ( Amer) 18 Est GFR (Non-Af Amer) 15 Random Glucose 99 Serum Osmolality Calcium 9.5 Phosphorus Magnesium Iron TIBC % Saturation Ferritin Total Bilirubin 4.6 H Direct Bilirubin AST 80 H ALT 49 Alkaline Phosphatase 73 Ammonia Troponin I 0.06 Total Protein 5.9 Albumin 2.8 L Globulin 3.1 Albumin/Globulin Ratio 0.9 L Vitamin B12 Folate Urine Color Urine Appearance Urine pH Ur Specific [place] Urine Protein Urine Glucose (UA) Urine Ketones Urine Blood Urine Nitrate Urine Bilirubin Urine Urobilinogen Ur Leukocyte Esterase Urine RBC Urine WBC Ur Epithelial Cells Hyaline Casts Ur Random Creatinine Ur Random Sodium Ur Random Urea Nitrogn 11/05/17 11/05/17 11:10 14:15 WBC RBC Hgb Hct MCV MCH MCHC RDW Plt Count MPV Gran % Lymph % (Auto) [place] % (Auto) Eos % (Auto) Baso % (Auto) Gran # Lymph # (Auto) [place] # (Auto) Eos # (Auto) Baso # (Auto) Retic Count Haptoglobin PT 18.0 H INR 1.55 H APTT 32.2 Sodium Potassium Chloride Carbon Dioxide Anion Gap BUN Creatinine Est GFR ( Amer) Est GFR (Non-Af Amer) Random Glucose Serum Osmolality Calcium Phosphorus Magnesium Iron TIBC % Saturation Ferritin Total Bilirubin Direct Bilirubin AST ALT Alkaline Phosphatase Ammonia Troponin I Total Protein Albumin Globulin Albumin/Globulin Ratio Vitamin B12 Folate Urine Color Urine Appearance Urine pH Ur Specific [place] Urine Protein Urine Glucose (UA) Urine Ketones Urine Blood Urine Nitrate Urine Bilirubin Urine Urobilinogen Ur Leukocyte Esterase Urine RBC Urine WBC Ur Epithelial Cells Hyaline Casts Ur Random Creatinine 196 Ur Random Sodium < 5 Ur Random Urea Nitrogn 467
--- NOTE | 2017-11-05 16:43 | CP.PCM.CON ---
History of Present Illness - History of Present Illness History of Present Illness: Mr. Dupont is a 62-year-old man, who had a large pleural effusion, and had about 11.5 liters of pleural fluid removed 6 days ago. Since then, he has been nauseous, lethargic, confused and had a syncopal episode. Labs showed acute renal failure, liver failure, and multiple electrolyte abnormalities, including hyponatremia. Review of Systems - Review of Systems All systems: reviewed and no additional remarkable complaints except Past Patient History - Infectious Disease Hx of Infectious Diseases: None - Past Social History Smoking Status: Unknown If Ever Smoked - HEMATOLOGICAL/ONCOLOGICAL Hx Cirrhosis: Yes - MUSCULOSKELETAL/RHEUMATOLOGICAL Hx Falls: Yes - PSYCHIATRIC Hx Substance Use: No - ANESTHESIA Hx Anesthesia: No Meds Allergies/Adverse Reactions: Allergies Allergy/AdvReac Type Severity Reaction Status Date / Time No Known Allergies Allergy Verified 10/29/17 15:51 - Medications Medications: Current Medications Albumin Human (Albumin Human 25% (12.5 Gm/50 Ml)) 25 gm IV Q6 [facility] Stop: 11/06/17 06:01 Last Admin: 11/05/17 11:27 Dose: 25 gm Sodium Chloride (Sodium Chloride 0.9%) 1,000 mls @ 100 mls/hr IV .Q10H [facility] Last Admin: 11/05/17 13:40 Dose: Not Given Lactulose (Enulose) 20 gm PO HS [facility] Midodrine (Proamatine) 10 mg PO TID [facility] Last Admin: 11/05/17 11:28 Dose: 10 mg Octreotide Acetate (Sandostatin) 200 mcg SC Q8 [facility] Last Admin: 11/05/17 11:29 Dose: 200 mcg Pantoprazole Sodium (Protonix Inj) 40 mg IVP DAILY [facility] Last Admin: 11/05/17 11:29 Dose: 40 mg Rifaximin (Xifaxan) 550 mg PO BID [facility] PRN Reason: Protocol Last Admin: 11/05/17 11:29 Dose: 550 mg Physical Exam - Constitutional Appears: Unkempt - Head Exam Head Exam: ATRAUMATIC, NORMAL INSPECTION, NORMOCEPHALIC - Eye Exam Eye Exam: EOMI, Normal appearance, PERRL - ENT Exam ENT Exam: Mucous Membranes Moist, Normal Exam - Neck Exam Neck exam: Positive for: Normal Inspection - Respiratory Exam Respiratory Exam: Rales, NORMAL BREATHING PATTERN - Cardiovascular Exam Cardiovascular Exam: REGULAR RHYTHM - GI/Abdominal Exam GI & Abdominal Exam: Normal Bowel Sounds, Soft. absent: Tenderness - Neurological Exam Neurological exam: Alert, CN II-XII Intact, Normal Gait, Oriented x3, Reflexes Normal Additional comments: Alert, oriented to time and person, but not certain about place. - Psychiatric Exam Psychiatric exam: Normal Affect, Normal Mood Results - Vital Signs Recent Vital Signs: Last Vital Signs Temp 97.4 F L 11/05/17 06:00 Pulse 91 H 11/05/17 06:00 Resp 20 11/05/17 06:00 BP 89/50 L 11/05/17 13:31 Pulse Ox 99 11/05/17 06:00 - Labs Result Diagrams: 11/05/17 11:10 11/05/17 11:10 Labs: Laboratory Results - last 24 hr 11/05/17 11/05/17 11/05/17 02:20 02:20 02:20 WBC RBC Hgb Hct MCV MCH MCHC RDW Plt Count MPV Gran % Lymph % (Auto) [place] % (Auto) Eos % (Auto) Baso % (Auto) Gran # Lymph # (Auto) [place] # (Auto) Eos # (Auto) Baso # (Auto) Retic Count 2.53 H Haptoglobin PT INR APTT Sodium Potassium Chloride Carbon Dioxide Anion Gap BUN Creatinine Est GFR ( Amer) Est GFR (Non-Af Amer) Random Glucose Serum Osmolality Calcium Phosphorus 6.6 H Magnesium 3.0 H Iron TIBC % Saturation Ferritin 566.0 Total Bilirubin Direct Bilirubin AST ALT Alkaline Phosphatase Ammonia 73 H Troponin I Total Protein Albumin Globulin Albumin/Globulin Ratio Vitamin B12 945 H Folate > 20.0 Urine Color Urine Appearance Urine pH Ur Specific [place] Urine Protein Urine Glucose (UA) Urine Ketones Urine Blood Urine Nitrate Urine Bilirubin Urine Urobilinogen Ur Leukocyte Esterase Urine RBC Urine WBC Ur Epithelial Cells Hyaline Casts Ur Random Creatinine Ur Random Sodium Ur Random Urea Nitrogn 11/05/17 11/05/17 11/05/17 02:20 02:20 02:20 WBC RBC Hgb Hct MCV MCH MCHC RDW Plt Count MPV Gran % Lymph % (Auto) [place] % (Auto) Eos % (Auto) Baso % (Auto) Gran # Lymph # (Auto) [place] # (Auto) Eos # (Auto) Baso # (Auto) Retic Count Haptoglobin PT INR APTT Sodium 122 L Potassium 6.3 H* Chloride 92 L Carbon Dioxide 19 L Anion Gap 18 BUN 140 H* Creatinine 4.0 H Est GFR ( Amer) 18 Est GFR (Non-Af Amer) 15 Random Glucose 115 H Serum Osmolality 312 H Calcium 9.9 Phosphorus Magnesium Iron 74 TIBC 192 L % Saturation 39 Ferritin Total Bilirubin Direct Bilirubin AST ALT Alkaline Phosphatase Ammonia Troponin I 0.07 Total Protein Albumin Globulin Albumin/Globulin Ratio Vitamin B12 Folate Urine Color Urine Appearance Urine pH Ur Specific [place] Urine Protein Urine Glucose (UA) Urine Ketones Urine Blood Urine Nitrate Urine Bilirubin Urine Urobilinogen Ur Leukocyte Esterase Urine RBC Urine WBC Ur Epithelial Cells Hyaline Casts Ur Random Creatinine Ur Random Sodium Ur Random Urea Nitrogn 11/05/17 11/05/17 11/05/17 02:45 05:30 05:30 WBC RBC Hgb Hct MCV MCH MCHC RDW Plt Count MPV Gran % Lymph % (Auto) [place] % (Auto) Eos % (Auto) Baso % (Auto) Gran # Lymph # (Auto) [place] # (Auto) Eos # (Auto) Baso # (Auto) Retic Count Haptoglobin < 20.0 L PT INR APTT Sodium Potassium Chloride Carbon Dioxide Anion Gap BUN Creatinine Est GFR ( Amer) Est GFR (Non-Af Amer) Random Glucose Serum Osmolality Calcium Phosphorus Magnesium Iron TIBC % Saturation Ferritin Total Bilirubin Direct Bilirubin 1.7 H AST ALT Alkaline Phosphatase Ammonia Troponin I Total Protein Albumin Globulin Albumin/Globulin Ratio Vitamin B12 Folate Urine Color Yellow Urine Appearance Sl cloudy Urine pH 6.0 Ur Specific [place] 1.020 Urine Protein 30 H Urine Glucose (UA) Negative Urine Ketones Negative Urine Blood Moderate H Urine Nitrate Negative Urine Bilirubin Negative Urine Urobilinogen 0.2 Ur Leukocyte Esterase Negative Urine RBC 2 - 5 Urine WBC 0 - 2 Ur Epithelial Cells 0 - 2 Hyaline Casts 0 - 2 Ur Random Creatinine Ur Random Sodium Ur Random Urea Nitrogn 11/05/17 11/05/17 11/05/17 05:30 11:10 11:10 WBC 10.0 10.2 RBC 2.37 L 2.29 L Hgb 8.3 L 8.1 L Hct 22.7 L 22.1 L MCV 95.8 96.5 MCH 35.0 35.4 H MCHC 36.6 36.7 RDW 17.0 H 17.2 H Plt Count 148 141 MPV 9.1 9.5 Gran % 73.2 H 74.8 H Lymph % (Auto) 11.8 L 12.1 L [place] % (Auto) 14.8 H 12.8 H Eos % (Auto) 0.1 L 0.3 L Baso % (Auto) 0.1 0.0 Gran # 7.34 H 7.62 H Lymph # (Auto) 1.2 1.2 [place] # (Auto) 1.5 H 1.3 H Eos # (Auto) 0.0 0.0 Baso # (Auto) 0.01 0.00 Retic Count Haptoglobin PT INR APTT Sodium 124 L Potassium 5.8 H* Chloride 92 L Carbon Dioxide 21 Anion Gap 17 BUN 146 H* Creatinine 4.0 H Est GFR ( Amer) 18 Est GFR (Non-Af Amer) 15 Random Glucose 99 Serum Osmolality Calcium 9.5 Phosphorus Magnesium Iron TIBC % Saturation Ferritin Total Bilirubin 4.6 H Direct Bilirubin AST 80 H ALT 49 Alkaline Phosphatase 73 Ammonia Troponin I 0.06 Total Protein 5.9 Albumin 2.8 L Globulin 3.1 Albumin/Globulin Ratio 0.9 L Vitamin B12 Folate Urine Color Urine Appearance Urine pH Ur Specific [place] Urine Protein Urine Glucose (UA) Urine Ketones Urine Blood Urine Nitrate Urine Bilirubin Urine Urobilinogen Ur Leukocyte Esterase Urine RBC Urine WBC Ur Epithelial Cells Hyaline Casts Ur Random Creatinine Ur Random Sodium Ur Random Urea Nitrogn 11/05/17 11/05/17 11:10 14:15 WBC RBC Hgb Hct MCV MCH MCHC RDW Plt Count MPV Gran % Lymph % (Auto) [place] % (Auto) Eos % (Auto) Baso % (Auto) Gran # Lymph # (Auto) [place] # (Auto) Eos # (Auto) Baso # (Auto) Retic Count Haptoglobin PT 18.0 H INR 1.55 H APTT 32.2 Sodium Potassium Chloride Carbon Dioxide Anion Gap BUN Creatinine Est GFR ( Amer) Est GFR (Non-Af Amer) Random Glucose Serum Osmolality Calcium Phosphorus Magnesium Iron TIBC % Saturation Ferritin Total Bilirubin Direct Bilirubin AST ALT Alkaline Phosphatase Ammonia Troponin I Total Protein Albumin Globulin Albumin/Globulin Ratio Vitamin B12 Folate Urine Color Urine Appearance Urine pH Ur Specific [place] Urine Protein Urine Glucose (UA) Urine Ketones Urine Blood Urine Nitrate Urine Bilirubin Urine Urobilinogen Ur Leukocyte Esterase Urine RBC Urine WBC Ur Epithelial Cells Hyaline Casts Ur Random Creatinine 196 Ur Random Sodium < 5 Ur Random Urea Nitrogn 467 Assessment & Plan (1) Syncope Assessment and Plan: Likely due to metabolic derangements, hyponatremia and hypovolemia. Continue medical and cardiac work-up. CT scan of the head did not show any acute findings. No further recommendations from a neurological standpoint. Thank you. Status: Acute Priority: High
[2017-11-05 19:22] LABS: OSMOLALITY,URINE 345 mosm/kg (300-1000)
--- NOTE | 2017-11-05 22:43 | CON ---
DATE: 11/05/2017 HISTORY OF PRESENT ILLNESS: Mr. Dupont is a 62-year-old white male with past medical history of alcoholic cirrhosis, which is decompensated, recurrent episodes of ascites and multiple paracenteses, admitted in the hospital several days after a large-volume paracentesis by Dr. Alvaro Davis. The patient apparently felt dizzy, passed out, hit the back of his head, brought to the emergency room. He was treated in the emergency room for lacerations in the occipital area. There was no change of vision or hearing, etc. Also, the patient denied rectal bleeding, nausea, vomiting or hematemesis. At the bedside this morning, the patient was speaking slow. Had to ask the questions several times for the patient to understand many of the questions. He denied abdominal pain. PHYSICAL EXAMINATION: VITAL SIGNS: I reviewed this patient's vital signs. HEENT: Noncontributory. LUNGS: Decreased breath sounds, basilar. Irregular breath sounds throughout the lungs bilaterally, which are mild. HEART: Irregular rhythm. ABDOMEN: Soft, protuberant. No tenderness elicited in any quadrant. LABORATORY DATA: Review of laboratory data indicated white count of 10, H and H 8.3 and 22.7. Platelet count was decreased. Chemistry this morning significant for hyperkalemia. The BUN and creatinine ratio is 140/40. Glucose 116, bilirubin 1.7. LDH on admission was 899. Iron with TIBC ratio of 74/192. Percent saturation of 39. Estimated GFR 15. Alcohol level was less than 10. CT of the head was performed indicating nonspecific white matter changes. Echo and coronary artery ultrasound pending. ASSESSMENT: This is a 62-year-old white male with a history of decompensated cirrhosis, admitted with dizziness, status post syncopal episode. The patient has significant degree of renal insufficiency. He will probably be seen by Renal service later on this morning. The patient has a significant fluid shift due to the large amount of ascites fluid taken out, which amounted to 11 liters. This paracentesis was performed on 10/29/2017. I reviewed the orders, indicate that the patient is on 25% albumin, lactulose, insulin, metoprolol, octreotide, pantoprazole, sodium bicarb, also sodium chloride. Also rifaximin and sodium polystyrene. This appears to be adequate. Apparently, there does not appear to be SBP. Paracentsis fluid results noted in the house staff note. David Irving DO, PhD MARYELLEN
[2017-11-06] MEDS: Albumin Human 25% (12.5 gm/50 ml) IV SCH ×2 (00:50→05:38)
[2017-11-06 06:27] LABS: MEAN CELL VOLUME 97.2 fl (80.0-105.0); MEAN CORPUSCULAR HEMOGLOBIN 35.2 pg (25.0-35.0); MEAN CORPUSCULAR HGB CONC 36.2 g/dl (31.0-37.0); MEAN PLATELET VOLUME 8.7 fl (7.0-11.0); RBC 1.79 10^6/uL (3.5-6.1); WHITE BLOOD COUNT 7.8 10^3/ul (4.5-11.0)
[2017-11-06 06:39] LABS: HEMOGLOBIN 6.3 g/dL (14.0-18.0)
[2017-11-06 07:01] LABS: ALB/GLOB RATIO 1.2 (1.1-1.8); ALBUMIN 3.1 g/dL (3.0-4.8)
--- NOTE | 2017-11-06 08:55 | CP.PCM.PN ---
Subjective - Date & Time of Evaluation Date of Evaluation: 11/06/17 Time of Evaluation: 07:00 - Subjective Subjective: Stable on 3R with severe anemia. No CP or SOB V/S noted. RSR PE: Lungs: clear Cor.: S1S2 Abd.: + ascites Ext.: no edema Neuro.: alert I/O= 820/200 recorded Labs: H/H = 6.3/17.4, Na+= 124, K+= 4.8, BUN 144, Cr.= 3.9, trops x2 Neg. Stool + OB Car. U/S noted. Echo done, will read: prlim.> Nl LV fx. See full report. Objective - Vital Signs/Intake and Output Vital Signs (last 24 hours): Temp Pulse Resp BP Pulse Ox 98.5 F 91 H 20 110/60 100 11/06/17 06:00 11/06/17 06:00 11/06/17 06:00 11/06/17 06:00 11/06/17 06:00 Intake and Output: 11/06/17 11/06/17 06:59 18:59 Intake Total 240 800 Output Total 50 200 Balance 190 600 - Medications Medications: Current Medications Lactulose (Enulose) 20 gm PO HS [facility] Last Admin: 11/05/17 21:17 Dose: 20 gm Midodrine (Proamatine) 10 mg PO TID [facility] Last Admin: 11/05/17 19:54 Dose: 10 mg Octreotide Acetate (Sandostatin) 200 mcg SC Q8 [facility] Last Admin: 11/06/17 07:34 Dose: 200 mcg Pantoprazole Sodium (Protonix Inj) 40 mg IVP DAILY [facility] Last Admin: 11/05/17 11:29 Dose: 40 mg Rifaximin (Xifaxan) 550 mg PO BID [facility] PRN Reason: Protocol Last Admin: 11/05/17 18:51 Dose: 550 mg - Labs Labs: 11/06/17 05:30 11/06/17 05:30 PT 18.0 SECONDS (9.4-12.5) H 11/05/17 11:10 INR 1.55 (0.93-1.08) H 11/05/17 11:10 APTT 32.2 Seconds (25.1-36.5) 11/05/17 11:10 Assessment and Plan - Assessment and Plan (Free Text) Assessment: Syncope at home with head trauma and scalp laceration S/P large volume paracentesis with acute kidney injury and hepato-renal syndrome GIB with severe anemia Thrombocytopenia Alcoholic cirrhosis CVD AMS Plan: Tranfuse As per Renal, GI, Neuro., medical Team Monitor: labs, H/H, I/O, Renal fx., sats., etc
--- NOTE | 2017-11-06 09:03 | PN ---
DATE: SUBJECTIVE: Mr. Dupont is a 62-year-old white male with a past medical history of cirrhosis, decompensated here with complaints of passing out hitting the back of his head. The patient has history of recurrent episodes of large-volume ascites aspiration with paracentesis performed at several hospitals. Most recent paracentesis was on 10/29/[address] Davis. At bedside this morning, the patient had some mild abdominal discomfort, but there is no nausea, vomiting, hematemesis, rectal bleeding. The patient is speaking a lot better this morning. PHYSICAL EXAMINATION VITAL SIGNS: I reviewed this patient's vital signs. HEENT: Noncontributory. LUNGS: Decreased breath sounds. HEART: Irregular rhythm. ABDOMEN: Soft, protuberant. No tenderness elicited. LABORATORY DATA: Pending for this morning. ASSESSMENT AND PLAN: This is a 62-year-old white male with history of decompensated cirrhosis now with dizziness, status post syncopal episode. The patient feels better in the room as of this morning. Note that he has significant renal deficiency and he was scheduled for dialysis earlier on this morning. I reviewed this patient's clinical status with the nurse on the floor. They indicate the patient was positive for bed bugs and he is currently on precautions. I did not see any on examining the patient this morning. At the current time point, the patient has been receiving 25% albumin and is also on midodrine and octreotide. Presumably, he is on midodrine and octreotide for hepatorenal syndrome. Not much to offer in this case. David Irving DO, PhD MARYELLEN
--- NOTE | 2017-11-06 09:03 | CARD ---
APPROVED REPORT EXAM: Two-dimensional and M-mode echocardiogram with Doppler and color Doppler. Other Information Quality : AverageRhythm : INDICATION Syncope , alcoholic cirrosis with ascites 2D DIMENSIONS Left Atrium (2D)4.4 (1.6-4.0cm)IVSd1.1 (0.7-1.1cm) LVDd4.2 (3.9-5.9cm)PWd1.0 (0.7-1.1cm) LVDs2.6 (2.5-4.0cm)FS (%) 38.7 % LVEF (%)69.4 (>50%) M-Mode DIMENSIONS Aortic Root3.60 (2.2-3.7cm)Aortic Cusp Exc.2.10 (1.5-2.0cm) Aortic Valve AoV Peak Gifhdses486.0cm/sLVOT Peak Prkyfcgb587.0cm/sLVOT VTI25.30cm Mitral Valve MV E Szafhyie98.7cm/sMV A Eaprbjum032.0cm/sE/A ratio0.7 TDI Lateral E' Peak V9.85cm/sMedial E' Peak V6.53cm/sE/Lateral E'7.1 E/Medial E'10.7 Pulmonary Valve PV Peak Gbbcbtoy692.0cm/sPV Peak Grad.7mmHg Tricuspid Valve TR Peak Tfypexwm237ct/sRAP NWUKEITN47epOiIF Peak Gr.27mmHg [id number] LEFT VENTRICLE The left ventricle is normal size. There is normal left ventricular wall thickness. The left ventricular function is normal. The left ventricular ejection fraction is within the normal range. There is normal LV segmental wall motion. RIGHT VENTRICLE The right ventricle is normal size. ATRIA The left atrium is mildly dilated. The right atrium size is normal. The interatrial septum is intact with no evidence for an atrial septal defect. AORTIC VALVE The aortic valve is mildly calcified. MITRAL VALVE The mitral valve is normal in structure. Mitral regurgitation is mild. TRICUSPID VALVE The tricuspid valve is normal in structure. There is trace tricuspid regurgitation. PULMONIC VALVE The pulmonic valve is not well visualized. GREAT VESSELS The aortic root is normal in size. PERICARDIAL EFFUSION Pleural effusion present. There is no pericardial effusion. <Conclusion> The left ventricle is normal size. There is normal left ventricular wall thickness. The left ventricular function is normal. The aortic valve is mildly calcified. Aortic sclerosis. Mitral regurgitation is mild. There is trace tricuspid regurgitation.
--- NOTE | 2017-11-06 10:36 | CP.PCM.PN ---
<Ari Geronimo - Last Filed: 11/06/17 10:30> Subjective - Date & Time of Evaluation Date of Evaluation: 11/06/17 Time of Evaluation: 07:30 - Subjective Subjective: Ari Geronimo DO PGY1 - IM Progress Note Patient seen and examined at bedside. Per nursing staff, patient had tarry black bowel movement overnight. Yesterday, spoke with patient and his sister, who is listed as point of contact and next of kin, and obtained consent for possible paracentesis, possible CVC placement, possible dialysis. This morning, also spoke to them both and obtained consent for blood transfusion. Patient remains lethargic, but easily arousable, and oriented to person, place, and time. He denies any abdominal pain, nausea, vomiting, chest pain, shortness of breath, fever, chills, hemoptysis. Complaining of heartburn, and requesting maalox. Patient reports that less than two weeks ago, had endoscopy done at [facility] which was reportedly normal. He also reports recently receiving 3 units of blood transfused. He denies ever having had dialysis. Objective - Vital Signs/Intake and Output Vital Signs (last 24 hours): Temp Pulse Resp BP Pulse Ox 98.5 F 91 H 20 110/60 100 11/06/17 06:00 11/06/17 06:00 11/06/17 06:00 11/06/17 06:00 11/06/17 06:00 Intake and Output: 11/06/17 11/06/17 06:59 18:59 Intake Total 240 800 Output Total 50 200 Balance 190 600 - Medications Medications: Current Medications Ceftriaxone Sodium (Rocephin 2 Gm Ivpb) 2 gm in 100 mls @ 100 mls/hr IVPB DAILY [facility] PRN Reason: Protocol Lactulose (Enulose) 20 gm PO HS [facility] Last Admin: 11/05/17 21:17 Dose: 20 gm Midodrine (Proamatine) 10 mg PO TID [facility] Last Admin: 11/06/17 09:23 Dose: 10 mg Octreotide Acetate (Sandostatin) 200 mcg SC Q8 [facility] Last Admin: 11/06/17 07:34 Dose: 200 mcg Pantoprazole Sodium (Protonix Inj) 40 mg IVP DAILY [facility] Last Admin: 11/06/17 09:23 Dose: 40 mg Rifaximin (Xifaxan) 550 mg PO BID [facility] PRN Reason: Protocol Last Admin: 11/06/17 09:23 Dose: 550 mg - Labs Labs: 11/06/17 05:30 11/06/17 05:30 PT 18.0 SECONDS (9.4-12.5) H 11/05/17 11:10 INR 1.55 (0.93-1.08) H 11/05/17 11:10 APTT 32.2 Seconds (25.1-36.5) 11/05/17 11:10 - Constitutional Appears: Non-toxic, No Acute Distress, Chronically Ill, Other (Lethargic, easily arousable) - Head Exam Head Exam: NORMOCEPHALIC Additional comments: Occiput with laceration, no bleeding or drainage - Eye Exam Eye Exam: EOMI, Normal appearance, Scleral icterus (mild) - ENT Exam ENT Exam: Mucous Membranes Dry Additional comments: Edentulous - Neck Exam Neck Exam: Full ROM, Normal Inspection - Respiratory Exam Respiratory Exam: Clear to Ausculation Bilateral, NORMAL BREATHING PATTERN - Cardiovascular Exam Cardiovascular Exam: JVD (with hepatojugular reflux at 45 degrees, 4cm above clavicle), RRR, +S1, +S2 - GI/Abdominal Exam GI & Abdominal Exam: Distended, Soft, Normal Bowel Sounds. absent: Firm, Guarding, Rigid, Tenderness, Rebound Additional comments: hyperresonant Shifting dullness Fluid wave - Extremities Exam Extremities Exam: absent: Calf Tenderness, Pedal Edema Additional comments: Bilateral lower legs with chronic venous stasis changes - Neurological Exam Neurological Exam: CN II-XII Intact, Oriented x3. absent: Alert, Awake Neuro motor strength exam: Left Upper Extremity: 5, Right Upper Extremity: 5, Left Lower Extremity: 5, Right Lower Extremity: 5 Additional comments: +asterixis, mild - Psychiatric Exam Psychiatric exam: absent: Homicidal Ideation, Suicidal Ideation Additional comments: Unable to assess - Skin Skin Exam: Dry, Intact Assessment and Plan - Assessment and Plan (Free Text) Assessment: 62 yo M with PMH of alcoholic cirrhosis admitted for syncopal episode and several electrolyte abnormalities. Plan: Syncope and fall - Likely 2/2 metabolic encephalopathy vs orthostasis 2/2 dehydration 2/2 renal failure and ascites - Head CT negative - Troponin x3 negative - Carotid doppler shows 20-39% proximal ICA stenosis with normal antegrade flow - Echo unremarkable - Maintain high risk fall precautions - BP improved today since IVF hydration, albumin infusion, and starting midodrine and octreotide - Cardio and neuro consulted; appreciate recs Acute renal failure with multiple electrolyte abnormalities - Patient was off diuretics, and given fluid challenge, without significant improvement in his urine output or renal function - Likely 2/2 type 1 hepatorenal syndrome, given clinical course and history; likely precipitated by large fluid shift due to large volume paracentesis - FENa and FEUrea very low, consistent with prerenal etiology, consistent with HRS - Patient started on midodrine 10mg PO TID and Octreotide 200mcg SC Q8, per nephro - Patient received 100gm albumin yesterday; moderate improvement in BP on current regimen - Repeat 100gm albumin today (25gm Q6) - Patient remains uremic, with only minimal improvement in his mental status since yesterday; patient and family consented to dialysis if needed - Will discuss with nephro for possible need for urgent dialysis - Hyponatremia mildly improved; Hyperkalemia resolved; Mg, Phos, and Ca improving, likely elevated 2/2 fluid status - Nephro on consult; appreciate recs Anemia - Patient acutely anemic compared to yesterday; per nursing staff, patient had black tarry stool; FOBT positive - Likely chronic, with possible superimposed GIB - Start IV PPI BID for possible GIB - Transfuse PRBC with goal Hct 30 - Start Rocephin for prophylaxis in cirrhotic with GIB (and for possible SBP, pending tap, as below) - Repeat H&H after transfusion - Recheck in AM - Will discuss with GI for possible need for upper endoscopy Alcoholic cirrhosis - Patient has increasing abdominal distention; admits to discomfort, but no pain - Patient lethargic on exam, with mild asterixis - Continue lactulose and rifaximin; titrate lactulose to 2-3 BM daily - Patient follows at [facility] for cirrhosis; will discuss with GI if patient is candidate for transplant/transfer - GI on consult; appreciate recs GI/DVT PPX - Protonix - SCDs Pt seen and discussed in detail with Dr. Montes De Oca <Jules Montes De Oca - Last Filed: 11/06/17 13:04> Objective - Vital Signs/Intake and Output Vital Signs (last 24 hours): Temp Pulse Resp BP Pulse Ox 97.7 F 87 20 103/56 L 100 03/27/18 11:34 11/06/17 11:34 11/06/17 11:34 11/06/17 11:34 11/06/17 08:00 Intake and Output: 11/06/17 11/06/17 06:59 18:59 Intake Total 240 800 Output Total 50 200 Balance 190 600 - Medications Medications: Current Medications Albumin Human (Albumin Human 25% (25 Gm/100 Ml)) 25 gm IV Q6 [facility] Stop: 11/07/17 06:01 Calcium Acetate (Phoslo) 667 mg PO WM [facility] Ceftriaxone Sodium (Rocephin 2 Gm Ivpb) 2 gm in 100 mls @ 100 mls/hr IVPB DAILY [facility] PRN Reason: Protocol Lactulose (Enulose) 20 gm PO HS [facility] Last Admin: 11/05/17 21:17 Dose: 20 gm Midodrine (Proamatine) 10 mg PO TID [facility] Last Admin: 11/06/17 09:23 Dose: 10 mg Octreotide Acetate (Sandostatin) 200 mcg SC Q8 [facility] Last Admin: 11/06/17 07:34 Dose: 200 mcg Pantoprazole Sodium (Protonix Inj) 40 mg IVP Q12 [facility] Rifaximin (Xifaxan) 550 mg PO BID [facility] PRN Reason: Protocol Last Admin: 11/06/17 09:23 Dose: 550 mg - Labs Labs: 11/06/17 05:30 11/06/17 05:30 PT 18.0 SECONDS (9.4-12.5) H 11/05/17 11:10 INR 1.55 (0.93-1.08) H 11/05/17 11:10 APTT 32.2 Seconds (25.1-36.5) 11/05/17 11:10 Attending/Attestation - Attestation I have personally seen and examined this patient.: Yes I have fully participated in the care of the patient.: Yes I have reviewed all pertinent clinical information, including history, physical exam and plan: Yes Notes (Text): 11/06/17 12:57 62 year old male with past medical history of cirrhosis who is admitted after syncopal episode. Found to have ARF, ascites and anemia. Neurology and cardiology are following the patient. Will follow up with recommendations. CT head was negative for acute findings. Carotid dopplers and echocardiogram were reviewed. He was started on midodrine, albumin and octreotide. Plan is for paracentesis today. He is on rifaxamin and lactulose. Nephrology is also following for acute renal failure and GI for ascites/ cirrhosis. Today he has anemia with hemoglobin of 6.3. Will transfuse and repeat H/H. Will discuss with GI for recommendations, although patient states he had a recent negative EGD. Jules Montes De Oca MD Hospitalist.
[2017-11-06 12:43] LABS: BODY FLUID TYPE PERITONEAL/ASCITES
[2017-11-06 12:55] LABS: BF GROSS APPEARANCE BLOODY (CLEAR)
[2017-11-06 12:56] LABS: BODY FLUID TOTAL COUNT 100 (0-0)
[2017-11-06] MEDS: cefTRIAXone 2 GM IN NS 2 GM/100 ML BAG IVPB SCH (14:11)
--- NOTE | 2017-11-06 14:23 | PCM.PROC ---
Procedures Attestation:: I certify that I have explained the specified Operation(s) or Procedure(s), risks, benefits and reasonable alternatives to the Patient and/or other person responsible. The opportunity was given to ask questions and all questions answered - Paracentesis Consent Obtained: written consent Time Out Performed: Yes (Supervised and assisted by Dr. Angus Castro PGY2 and Dr. Mariano Wells) Indication: Ascites, possible spontaneous bacterial peritonitis Procedure: therapeutic paracentesis (2400 cc drained, serosanguinous fluid), diagnostic paracentesis Location: RLQ Local Anesthetic Used: lidocaine 1%
[2017-11-06] MEDS: Albumin Human 25% (25 gm/100 ml) IV SCH (15:19)
--- NOTE | 2017-11-06 16:45 | CP.PCM.PN ---
Subjective - Date & Time of Evaluation Date of Evaluation: 11/06/17 Time of Evaluation: 16:43 - Subjective Subjective: Nephrology Consultation: Assessment: critical Oliguric Acute Kidney Injury (N17.9) likely due to Type 1 Hepatorenal syndrome Anemia, Hyponatremia, Hyperkalemia, acidosis cirrhosis of liver with active smoker, etoh abuse Plan maintain hemodynamics stable. Patient not on ACEI/ARB due to CAMILO and high K. avoid aldactone as well continue wit octreotide, midodrine and albumin. medical management of hyperkalemia d/w pt about prognosis, condition and likely need for dialysis soon. pt will accept HD if needed. pt may need renal replacement therapy soon but overall prognosis poor. GI consult to ascertain if pt candidate for liver transplant. If so, suggest transfer to tertiary care Liver center. If not a candidate then consider palliative care Monitor Input/Output, daily weights and renal function with basic metabolic panel avoid correction in serum Na >6-8 meq/24 hrs avoid large volume paracentesis getting PRBC Dose meds/antibiotics for reduced GFR. Avoid fleets enema/magnesium based laxatives. Avoid nephrotoxins/NSAIDs/ iodinated contrast (unless needed emergently) Glycemic control Further work up/management as per primary team Thanks for allowing me to participate in care of your patient. Will follow patient with you. Please call if any Qs. d/w team Dr Lawrence Youngblood Office: [phone] Chief Complaint; syncope HPI: Pt is a 62 M with hx of cirrhosis, chronic etoh abuse and active smoker presented with complaints of fall and dizzziness, syncope. found to have severe CAMILO and renal consulted Denies OTC/herbal meds or NSAIDs No recent iodinated contrast exposure. Noted obvious episodes of low BP. says had last alcohol drink in jul 2017 recently had large volume paracentesis ROS: Cardiovascular: No chest pain. Pulmonary: No shortness of breath Gastrointestinal: denies abdominal pain No nausea. No vomiting. Genitourinary: No pain while urinating. Denies blood in urine. reports decreased UOP All other negative Physical Examination: General Appearance: Comfortable, in no acute respiratory distress, co-operative . ill appearing and debilitated, facial muscles wasted Vitals reviewed and noted as below Head; Atraumatic, normocephalic ENT: no ulcers no thrush. Tongue is midline. Oropharynx: no rash or ulcers. EYES: Pupils are equal, round and reactive to light accommodation. Eye muscles and extraocular movement intact. Sclera is anicteric. Neck; supple no lymphadenopathy, no thyromegaly or bruit Lungs: Normal respiratory rate/effort. Breath sounds bilateral equal and clear Heart: Normal rate. s1s2 normal. No rub or gallop. Extremities: no edema. No varicose veins. chronic venosus stasis changes in legs Neurological: Patient is alert, awake and oriented to person, place and time. No focal deficit. Strength bilateral appropriate and equal. has asterixis Skin: Warm and dry. Normal turgor. No rash. Palpitation: Normal elasticity for age. has spider angiomas Abdomen: Abdomen is soft. Bowel sounds +. There is no abdominal tenderness, no guarding/rigidity no organomegaly. distended/ascitic Psych: normal insight and flat affect/mood MSK: no joint tenderness or swelling. Digits and nails normal, no deformity : kidney or bladder not palpable Labs/imaging reviewed. Past medical history, past surgical history, family history, social history, allergy reviewed and noted as below Family hx: no hx of CKD. Rest non-contributory Objective - Vital Signs/Intake and Output Vital Signs (last 24 hours): Temp Pulse Resp BP Pulse Ox 97.8 F 86 16 98/56 L 100 11/06/17 14:12 11/06/17 14:12 11/06/17 14:12 11/06/17 14:12 11/06/17 08:00 Intake and Output: 11/06/17 11/06/17 06:59 18:59 Intake Total 240 1705 Output Total 50 850 Balance 190 855 - Medications Medications: Current Medications Albumin Human (Albumin Human 25% (25 Gm/100 Ml)) 25 gm IV Q6 [facility] Stop: 11/07/17 06:01 Last Admin: 11/06/17 15:19 Dose: 25 gm Calcium Acetate (Phoslo) 667 mg PO WM [facility] Last Admin: 11/06/17 13:10 Dose: 667 mg Ceftriaxone Sodium (Rocephin 2 Gm Ivpb) 2 gm in 100 mls @ 100 mls/hr IVPB DAILY [facility] PRN Reason: Protocol Last Admin: 11/06/17 14:11 Dose: 100 mls/hr Lactulose (Enulose) 20 gm PO HS [facility] Last Admin: 11/05/17 21:17 Dose: 20 gm Midodrine (Proamatine) 10 mg PO TID [facility] Last Admin: 11/06/17 13:10 Dose: 10 mg Octreotide Acetate (Sandostatin) 200 mcg SC Q8 [facility] Last Admin: 11/06/17 13:10 Dose: 200 mcg Pantoprazole Sodium (Protonix Inj) 40 mg IVP Q12 [facility] Rifaximin (Xifaxan) 550 mg PO BID [facility] PRN Reason: Protocol Last Admin: 11/06/17 09:23 Dose: 550 mg - Labs Labs: 11/06/17 05:30 11/06/17 05:30 PT 18.0 SECONDS (9.4-12.5) H 11/05/17 11:10 INR 1.55 (0.93-1.08) H 11/05/17 11:10 APTT 32.2 Seconds (25.1-36.5) 11/05/17 11:10
--- NOTE | 2017-11-06 21:01 | CARD ---
APPROVED REPORT EKG Measurement Heart [id number] <Conclusion> Normal sinus rhythm Normal ECG
[2017-11-07] MEDS: Albumin Human 25% (25 gm/100 ml) IV SCH ×5 (00:38→22:12)
[2017-11-07 07:42] LABS: MEAN CELL VOLUME 93.2 fl (80.0-105.0); MEAN CORPUSCULAR HEMOGLOBIN 32.8 pg (25.0-35.0); MEAN CORPUSCULAR HGB CONC 35.2 g/dl (31.0-37.0); MEAN PLATELET VOLUME 9.1 fl (7.0-11.0); RBC 1.92 10^6/uL (3.5-6.1); RED CELL DISTRIBUTION WIDTH 19.4 % (11.5-14.5); WHITE BLOOD COUNT 7.2 10^3/ul (4.5-11.0)
[2017-11-07 07:50] LABS: HEMOGLOBIN 6.3 g/dL (14.0-18.0)
[2017-11-07 07:52] LABS: ALB/GLOB RATIO 1.5 (1.1-1.8); ALBUMIN 3.2 g/dL (3.0-4.8); CALCIUM 8.8 mg/dL (8.4-10.5)
--- NOTE | 2017-11-07 11:58 | CP.PCM.CON ---
History of Present Illness - History of Present Illness History of Present Illness: Palliative consult requested by Dr Roddy Montes De Oca Reason: Goals of care and advance care planning 62 year. old male with hsoty of alcoholic cirrhosis presented to [facility] after a syncopal episode resulting in a fall. He hit the back of hsi head sustaining a laceration. He complained of dizziness prior to fall, but denied any subsequent dizziness upon arrival to ED. He also denied visual changes, shortness of breath , chest pain, weakness, numbness, fever. He has history of ascites which has resulted in previous admissions to hospital. PMHx: alcoholic cirrhosis Social Hist: Drank whiskey daily, states his last drink was 07/19/17. Daily smoker, denies illicit drug use Family History: Father had lung Cancer, Mother CHF Advance Care Planning:The patient does not have an Advanced Directive. Review of Systems: As per HPI,otherwise negative Past Patient History - Infectious Disease Hx of Infectious Diseases: None - Past Social History Smoking Status: Unknown If Ever Smoked - HEMATOLOGICAL/ONCOLOGICAL Hx Cirrhosis: Yes - MUSCULOSKELETAL/RHEUMATOLOGICAL Hx Falls: Yes - PSYCHIATRIC Hx Substance Use: No - ANESTHESIA Hx Anesthesia: No Meds Allergies/Adverse Reactions: Allergies Allergy/AdvReac Type Severity Reaction Status Date / Time No Known Allergies Allergy Verified 10/29/17 15:51 - Medications Medications: Current Medications Albumin Human (Albumin Human 25% (12.5 Gm/50 Ml)) 25 gm IV Q6 [facility] Stop: 11/08/17 00:01 Calcium Acetate (Phoslo) 667 mg PO WM [facility] Last Admin: 11/07/17 09:32 Dose: 667 mg Ceftriaxone Sodium (Rocephin 2 Gm Ivpb) 2 gm in 100 mls @ 100 mls/hr IVPB DAILY [facility] PRN Reason: Protocol Last Admin: 11/06/17 14:11 Dose: 100 mls/hr Lactulose (Enulose) 20 gm PO HS [facility] Last Admin: 11/06/17 22:20 Dose: Not Given Midodrine (Proamatine) 10 mg PO TID [facility] Last Admin: 11/07/17 09:32 Dose: 10 mg Octreotide Acetate (Sandostatin) 200 mcg SC Q8 [facility] Last Admin: 11/07/17 05:31 Dose: 200 mcg Pantoprazole Sodium (Protonix Inj) 40 mg IVP Q12 [facility] Last Admin: 11/07/17 10:53 Dose: 40 mg Rifaximin (Xifaxan) 550 mg PO BID [facility] PRN Reason: Protocol Last Admin: 11/07/17 09:32 Dose: 550 mg Physical Exam - Constitutional Appears: Cachectic, Chronically Ill - Head Exam Head Exam: NORMOCEPHALIC Additional comments: healing wound bakc of head, sutures intact - Eye Exam Eye Exam: Normal appearance, PERRL - ENT Exam ENT Exam: Mucous Membranes Moist, Normal Oropharynx - Neck Exam Neck exam: Positive for: Normal Inspection - Respiratory Exam Respiratory Exam: Decreased Breath Sounds, NORMAL BREATHING PATTERN - Cardiovascular Exam Cardiovascular Exam: REGULAR RHYTHM, +S1, +S2 - GI/Abdominal Exam GI & Abdominal Exam: Distended, Normal Bowel Sounds - Rectal Exam Rectal Exam: NORMAL INSPECTION - Extremities Exam Extremities exam: Positive for: normal capillary refill, pedal edema - Back Exam Back exam: NORMAL INSPECTION - Neurological Exam Neurological exam: Alert, Oriented x3 - Skin Skin Exam: Dry, Pallor - Additional Findings Additional findings: palliative performance scale rating 50% Results - Vital Signs Recent Vital Signs: Last Vital Signs Temp 98.1 F 11/07/17 10:48 Pulse 80 11/07/17 10:48 Resp 16 11/07/17 10:48 BP 97/57 L 11/07/17 10:48 Pulse Ox 99 11/07/17 06:00 - Labs Result Diagrams: 11/08/17 06:30 11/08/17 06:30 Labs: Laboratory Results - last 24 hr 11/06/17 11/06/17 11/07/17 08:30 12:00 07:00 WBC 7.2 RBC 1.92 L Hgb 6.3 L* Hct 17.9 L* MCV 93.2 D MCH 32.8 MCHC 35.2 RDW 19.4 H Plt Count 62 L MPV 9.1 Sodium Potassium Chloride Carbon Dioxide Anion Gap BUN Creatinine Est GFR ( Amer) Est GFR (Non-Af Amer) Random Glucose Calcium Phosphorus Magnesium Total Bilirubin AST ALT Alkaline Phosphatase Total Protein Albumin Globulin Albumin/Globulin Ratio Fluid Source Peritoneal/ascites Fluid Appearance Bloody Fluid WBC 269.0 Fluid RBC 72322.0 H Fluid Tot Cell Count 100 H Fluid Neutrophils 45.0 H Fluid Lymphocytes 55.0 H Fld Monocyte/Macrophag TEST NOT PERFORMED Fluid Comment Red color Blood Type B POSITIVE Antibody Screen Negative Crossmatch See Detail BBK History Checked No verified bt 11/07/17 07:00 WBC RBC Hgb Hct MCV MCH MCHC RDW Plt Count MPV Sodium 126 L Potassium 4.2 Chloride 94 L Carbon Dioxide 21 Anion Gap 15 BUN 123 H* Creatinine 2.9 H Est GFR ( Amer) 27 Est GFR (Non-Af Amer) 22 Random Glucose 108 Calcium 8.8 Phosphorus 4.0 Magnesium 2.6 H Total Bilirubin 4.1 H AST 42 ALT 35 Alkaline Phosphatase 37 L D Total Protein 5.4 L Albumin 3.2 Globulin 2.1 Albumin/Globulin Ratio 1.5 Fluid Source Fluid Appearance Fluid WBC Fluid RBC Fluid Tot Cell Count Fluid Neutrophils Fluid Lymphocytes Fld Monocyte/Macrophag Fluid Comment Blood Type Antibody Screen Crossmatch BBK History Checked Assessment & Plan - Assessment and Plan (Free Text) Assessment: 62 year old male with history of alcoholic cirrhosis and ascites who is admitted s/p fall with head laceration,electrolyte imbalance, CAMILO, anemia The patient is alert and oriented. He is aware of his diagnosis and prognosis if he continues to drink. He states he is no longer drinking. He intends to be evaluated for liver transplant.He is optotimtic that he can remain sober. When asked if he had an advanced directive, he sated he did not. Benefits and burdens of resuscitation discussed at length, questions answered.He understands the ramifications of aggressive resuscitation. He wants to remain a full code, but does not want life pronged if his situation is terminal or incurable. POLST directive explained, questions answered. POLST form completed. The patient named his brother Demond Dupont as his health care surrogate. Time spent in goals of care and advance care planning discussion, 30 minutes Plan: Advance care planning: POLST/Full code Anemia: transfuse 2U PRBC, continue PPI,Follow GI recommendations. he,apto renal syndrome: Resolving;Continue Midodrine and Octreotide, Albumin replacement. Monitor labs. Follow up with Renal and GI Alcoholic cirrhosis/ ascites: paracentisis as needed, continue lactulose and rifaximin. Follow up at [facility]
[2017-11-07] MEDS: cefTRIAXone 2 GM IN NS 2 GM/100 ML BAG IVPB SCH (12:45)
[2017-11-07] MEDS ORDERED: Albumin Human 25% (25 gm/100 ml) IV SCH (13:14)
[2017-11-07] MEDS: Albumin Human 25% (12.5 gm/50 ml) IV SCH (13:48)
--- NOTE | 2017-11-07 16:15 | CP.PCM.PN ---
Subjective - Date & Time of Evaluation Date of Evaluation: 11/07/17 Time of Evaluation: 16:14 - Subjective Subjective: Nephrology Consultation: Assessment: stable Nonoliguric Acute Kidney Injury (N17.9) likely due to Type 1 Hepatorenal syndrome Anemia, Hyponatremia, Hyperkalemia, acidosis cirrhosis of liver with active smoker, etoh abuse Plan maintain hemodynamics stable. Patient not on ACEI/ARB due to CAMILO and high K. avoid aldactone as well continue wit octreotide, midodrine and albumin. medical management of hyperkalemia GI consult to ascertain if pt candidate for liver transplant. If so, suggest transfer to tertiary care Liver center. palliative care input appreciated Monitor Input/Output, daily weights and renal function with basic metabolic panel avoid correction in serum Na >6-8 meq/24 hrs avoid large volume paracentesis getting PRBC Dose meds/antibiotics for reduced GFR. Avoid fleets enema/magnesium based laxatives. Avoid nephrotoxins/NSAIDs/ iodinated contrast (unless needed emergently) Glycemic control Further work up/management as per primary team Thanks for allowing me to participate in care of your patient. Will follow patient with you. Please call if any Qs. d/w team Dr Lawrence Youngblood Office: [phone] HPI: Pt is a 62 M with hx of cirrhosis, chronic etoh abuse and active smoker presented with complaints of fall and dizzziness, syncope. found to have severe CAMILO and renal consulted Denies OTC/herbal meds or NSAIDs No recent iodinated contrast exposure. Noted obvious episodes of low BP. says had last alcohol drink in jul 2017 recently had large volume paracentesis ROS: Cardiovascular: No chest pain. Pulmonary: No shortness of breath Gastrointestinal: denies abdominal pain No nausea. No vomiting. Genitourinary: No pain while urinating. Denies blood in urine. reports improved UOP All other negative Physical Examination: General Appearance: Comfortable, in no acute respiratory distress, co-operative . ill appearing and debilitated, facial muscles wasted Vitals reviewed and noted as below Head; Atraumatic, normocephalic ENT: no ulcers no thrush. Tongue is midline. Oropharynx: no rash or ulcers. EYES: Pupils are equal, round and reactive to light accommodation. Eye muscles and extraocular movement intact. Sclera is anicteric. Neck; supple no lymphadenopathy, no thyromegaly or bruit Lungs: Normal respiratory rate/effort. Breath sounds bilateral equal and clear Heart: Normal rate. s1s2 normal. No rub or gallop. Extremities: no edema. No varicose veins. chronic venosus stasis changes in legs Neurological: Patient is alert, awake and oriented to person, place and time. No focal deficit. Strength bilateral appropriate and equal. has asterixis Skin: Warm and dry. Normal turgor. No rash. Palpitation: Normal elasticity for age. has spider angiomas Abdomen: Abdomen is soft. Bowel sounds +. There is no abdominal tenderness, no guarding/rigidity no organomegaly. distended/ascitic Psych: normal insight and flat affect/mood MSK: no joint tenderness or swelling. Digits and nails normal, no deformity : kidney or bladder not palpable Labs/imaging reviewed. Past medical history, past surgical history, family history, social history, allergy reviewed and noted as below Family hx: no hx of CKD. Rest non-contributory Objective - Vital Signs/Intake and Output Vital Signs (last 24 hours): Temp Pulse Resp BP Pulse Ox 98.6 F 76 18 102/55 L 99 11/07/17 12:20 11/07/17 14:00 11/07/17 12:20 11/07/17 12:20 11/07/17 06:00 Intake and Output: 11/07/17 11/07/17 06:59 18:59 Intake Total 200 1035 Output Total 1750 Balance 200 -715 - Medications Medications: Current Medications Albumin Human (Albumin Human 25% (25 Gm/100 Ml)) 25 gm IV Q6H [facility] Stop: 11/08/17 07:15 Last Admin: 11/07/17 13:42 Dose: 25 gm Calcium Acetate (Phoslo) 667 mg PO WM [facility] Last Admin: 11/07/17 12:47 Dose: 667 mg Ceftriaxone Sodium (Rocephin 2 Gm Ivpb) 2 gm in 100 mls @ 100 mls/hr IVPB DAILY [facility] PRN Reason: Protocol Last Admin: 11/07/17 12:45 Dose: 100 mls/hr Lactulose (Enulose) 20 gm PO HS [facility] Last Admin: 11/06/17 22:20 Dose: Not Given Midodrine (Proamatine) 10 mg PO TID [facility] Last Admin: 11/07/17 13:42 Dose: 10 mg Octreotide Acetate (Sandostatin) 200 mcg SC Q8 [facility] Last Admin: 11/07/17 13:42 Dose: 200 mcg Pantoprazole Sodium (Protonix Inj) 40 mg IVP Q12 [facility] Last Admin: 11/07/17 10:53 Dose: 40 mg Rifaximin (Xifaxan) 550 mg PO BID [facility] PRN Reason: Protocol Last Admin: 11/07/17 09:32 Dose: 550 mg - Labs Labs: 11/07/17 07:00 11/07/17 07:00 PT 18.0 SECONDS (9.4-12.5) H 11/05/17 11:10 INR 1.55 (0.93-1.08) H 11/05/17 11:10 APTT 32.2 Seconds (25.1-36.5) 11/05/17 11:10
--- NOTE | 2017-11-07 16:42 | PN ---
DATE: 11/07/2017 SUBJECTIVE: The patient is seen lying in bed on telemetry. He states he feels more comfortable. He has had no recurrent lightheadedness or syncope. CURRENT MEDICATIONS: Include PhosLo, ProAmatine, Protonix, Rocephin, Xifaxan, and octreotide as well as lactulose. OBJECTIVE: GENERAL: He is a chronically ill-appearing middle-aged man. VITAL SIGNS: His blood pressure is 98/60 with a pulse of 80 in sinus, respirations are 14. He is currently afebrile. HEENT: Temporal wasting noted. CHEST: Diminished breath sounds at the bases. HEART: PMI displaced laterally with a systolic murmur noted at the base as well as the apex. ABDOMEN: Soft, protuberant with ascites present. Bowel sounds are present. EXTREMITIES: Trace edema. DIAGNOSTIC DATA: Sodium is 126, potassium 4.2. BUN and creatinine 123 and 2.9. Hemoglobin and hematocrit 6.3 and 17.9 with a platelet count of 62,000, white count 7.2. IMPRESSION: 1. Recent syncope, etiology unclear, possibly precipitated by severe anemia. 2. Hepatorenal syndrome. 3. Severe anemia secondary to gastrointestinal bleeding. 4. Worsening thrombocytopenia. 5. Alcohol liver disease. RECOMMENDATIONS: At this time, his renal and hepatic issues appear to be his more pressing problems. His echocardiogram revealed mild aortic sclerosis with mild mitral regurgitation and normal LV systolic function. The likelihood of a significant cardiac dysrhythmia as the cause of the recent sequelae is less likely. Observation for additional 24 hours on telemetry would be reasonable. I would not pursue further workup beyond that unless the higher suspicion for cardiac cause became evident. His overall prognosis remains poor. We will be happy to follow along as needed. Martinez Whitman MD
--- NOTE | 2017-11-07 17:28 | CP.PCM.PN ---
<Ari Geronimo - Last Filed: 11/07/17 17:25> Subjective - Date & Time of Evaluation Date of Evaluation: 11/07/17 Time of Evaluation: 07:30 - Subjective Subjective: Ari Grazyna DO PGY1 - IM Progress Note Patient seen and examined at bedside. Per nursing staff, patient has not riley any further black tarry bowel movements. Patient is more awake/alert than yesterday. He reports some abdominal discomfort slightly improved since yesterday, but denies any abdominal pain. He denies any chest pain, shortness of breath, fever, chills, nausea, vomiting. Objective - Vital Signs/Intake and Output Vital Signs (last 24 hours): Temp Pulse Resp BP Pulse Ox 98.6 F 76 18 102/55 L 99 11/07/17 12:20 11/07/17 14:00 11/07/17 12:20 11/07/17 12:20 11/07/17 06:00 Intake and Output: 11/07/17 11/07/17 06:59 18:59 Intake Total 200 1035 Output Total 1750 Balance 200 -715 - Medications Medications: Current Medications Albumin Human (Albumin Human 25% (25 Gm/100 Ml)) 25 gm IV Q6H [facility]S [facility] 234 BEDS AT [facility] Stop: 11/08/17 07:15 Last Admin: 11/07/17 13:42 Dose: 25 gm Calcium Acetate (Phoslo) 667 mg PO WM COUNTS INCLUDE 234 BEDS AT [facility] Last Admin: 11/07/17 12:47 Dose: 667 mg Ceftriaxone Sodium (Rocephin 2 Gm Ivpb) 2 gm in 100 mls @ 100 mls/hr IVPB DAILY [facility]S [facility]CLUDE 234 BEDS AT [facility] PRN Reason: Protocol Last Admin: 11/07/17 12:45 Dose: 100 mls/hr Lactulose (Enulose) 20 gm PO HS [facility]S [facility]CLUDE 234 BEDS AT [facility] Last Admin: 11/06/17 22:20 Dose: Not Given Midodrine (Proamatine) 10 mg PO TID COUNTS [facility]CLUDE 234 BEDS AT [facility] Last Admin: 11/07/17 13:42 Dose: 10 mg Octreotide Acetate (Sandostatin) 200 mcg SC Q8 [facility]S [facility]CLUDE 234 BEDS AT [facility] Last Admin: 11/07/17 13:42 Dose: 200 mcg Pantoprazole Sodium (Protonix Inj) 40 mg IVP Q12 [facility]S [facility] 234 BEDS AT [facility] Last Admin: 11/07/17 10:53 Dose: 40 mg Rifaximin (Xifaxan) 550 mg PO BID [facility]S [facility] 234 BEDS AT [facility] PRN Reason: Protocol Last Admin: 11/07/17 09:32 Dose: 550 mg - Labs Labs: 11/07/17 07:00 11/07/17 07:00 PT 18.0 SECONDS (9.4-12.5) H 11/05/17 11:10 INR 1.55 (0.93-1.08) H 11/05/17 11:10 APTT 32.2 Seconds (25.1-36.5) 11/05/17 11:10 - Additional Findings Additional findings: - Constitutional Appears: Non-toxic, No Acute Distress, Chronically Ill, Other (Lethargic, easily arousable) - Head Exam Head Exam: NORMOCEPHALIC Additional comments: Occiput with laceration, no bleeding or drainage - Eye Exam Eye Exam: EOMI, Normal appearance, Scleral icterus (mild) - ENT Exam ENT Exam: Mucous Membranes Dry Additional comments: Edentulous - Neck Exam Neck Exam: Full ROM, Normal Inspection - Respiratory Exam Respiratory Exam: Clear to Ausculation Bilateral, NORMAL BREATHING PATTERN - Cardiovascular Exam Cardiovascular Exam: JVD (with hepatojugular reflux at 45 degrees, 4cm above clavicle), RRR, +S1, +S2 - GI/Abdominal Exam GI & Abdominal Exam: Distended, Soft, Normal Bowel Sounds. absent: Firm, Guarding, Rigid, Tenderness, Rebound Additional comments: hyperresonant Shifting dullness Fluid wave - Extremities Exam Extremities Exam: absent: Calf Tenderness, Pedal Edema Additional comments: Bilateral lower legs with chronic venous stasis changes - Neurological Exam Neurological Exam: CN II-XII Intact, Oriented x3. absent: Alert, Awake Neuro motor strength exam: Left Upper Extremity: 5, Right Upper Extremity: 5, Left Lower Extremity: 5, Right Lower Extremity: 5 Additional comments: +asterixis, mild - Psychiatric Exam Psychiatric exam: absent: Homicidal Ideation, Suicidal Ideation Additional comments: Unable to assess - Skin Skin Exam: Dry, Intact Assessment and Plan - Assessment and Plan (Free Text) Assessment: 62 yo M with PMH of alcoholic cirrhosis admitted for syncopal episode and several electrolyte abnormalities. Actively being treated for hepatorenal syndrome and acute anemia s/p 2uPRBC Plan: Syncope and fall - Likely 2/2 metabolic encephalopathy vs orthostasis 2/2 dehydration 2/2 renal failure and ascites - Neuro and cardio workup unremarkable - Maintain high risk fall precautions - BP stable - Cardio and neuro consulted; appreciate recs Acute renal failure with multiple electrolyte abnormalities; likely 2/2 type 1 HRS - Uremia slightly improved; Cr improved slightly - Likely 2/2 type 1 hepatorenal syndrome, given clinical course and history; likely precipitated by large fluid shift due to large volume paracentesis - FENa and FEUrea very low, consistent with prerenal etiology, consistent with HRS - Continue midodrine 10mg PO TID and Octreotide 200mcg SC Q8, per nephro - Continue albumin infusion - Nephro on consult; appreciate recs Anemia - Patient was acutely anemic yesterday; now s/p 2uPRBC, without appropriate elevation in H&H; no further episodes of melena - Transfuse 2uPRBC again today with goal Hct 30 - Likely chronic, with possible superimposed GIB - Continue IV PPI BID for possible GIB - Continue Rocephin for prophylaxis in cirrhotic with possible GIB - Repeat H&H after transfusion - Recheck in AM - Will discuss with GI for possible need for upper endoscopy Alcoholic cirrhosis - Patient has increasing abdominal distention; admits to discomfort, but no pain - s/p Paracentesis 2500cc yesterday; cell count indicates unlikely SBP; pending further SAAG, gram stain, and culture - Mental status improved - Continue lactulose and rifaximin; titrate lactulose to 2-3 BM daily - Patient follows at [facility] for cirrhosis; will discuss with GI if patient is candidate for transplant/transfer - GI on consult; appreciate recs GI/DVT PPX - Protonix - SCDs Pt seen and discussed in detail with Dr. Montes De Oca <Jules Montes De Oca - Last Filed: 11/08/17 07:39> Objective - Vital Signs/Intake and Output Vital Signs (last 24 hours): Temp Pulse Resp BP Pulse Ox 98.1 F 78 19 110/61 97 11/08/17 06:00 11/08/17 06:00 11/08/17 06:00 11/08/17 06:00 11/08/17 06:00 Intake and Output: 11/08/17 11/08/17 06:59 18:59 Intake Total 925 Output Total 1500 Balance -575 - Medications Medications: Current Medications Calcium Acetate (Phoslo) 667 mg PO WM COUNTS INCLUDE 234 BEDS AT [facility] Last Admin: 11/07/17 17:48 Dose: 667 mg Ceftriaxone Sodium (Rocephin 2 Gm Ivpb) 2 gm in 100 mls @ 100 mls/hr IVPB DAILY [facility] PRN Reason: Protocol Last Admin: 11/07/17 12:45 Dose: 100 mls/hr Lactulose (Enulose) 20 gm PO HS COUNTS INCLUDE 234 BEDS AT [facility] Last Admin: 11/07/17 22:13 Dose: 20 gm Midodrine (Proamatine) 10 mg PO TID COUNTS INCLUDE 234 BEDS AT [facility] Last Admin: 11/07/17 17:48 Dose: 10 mg Octreotide Acetate (Sandostatin) 200 mcg SC Q8 [facility] Last Admin: 11/08/17 06:02 Dose: 200 mcg Pantoprazole Sodium (Protonix Inj) 40 mg IVP Q12 COUNTS INCLUDE 234 BEDS AT [facility] Last Admin: 11/07/17 22:13 Dose: 40 mg Rifaximin (Xifaxan) 550 mg PO BID COUNTS INCLUDE 234 BEDS AT [facility] PRN Reason: Protocol Last Admin: 11/07/17 17:48 Dose: 550 mg - Labs Labs: 11/08/17 06:30 11/08/17 06:30 PT 18.0 SECONDS (9.4-12.5) H 11/05/17 11:10 INR 1.55 (0.93-1.08) H 11/05/17 11:10 APTT 32.2 Seconds (25.1-36.5) 11/05/17 11:10 Attending/Attestation - Attestation I have personally seen and examined this patient.: Yes I have fully participated in the care of the patient.: Yes I have reviewed all pertinent clinical information, including history, physical exam and plan: Yes Notes (Text): 11/07/17 62 year old male with past medical history of cirrhosis who was admitted after syncopal episode. Found to have HRS, ARF, ascites and anemia. CT head was negative for acute findings. Carotid dopplers and echocardiogram were reviewed. He is being followed by neurology, cardiology, nephrology and GI. He was started on midodrine, albumin and octreotide. He is s/p paracentesis. He is on rifaxamin and lactulose. He still has anemia today of 6.3 despite 2 units of prbc yesterday. Will transfuse again today and discuss with GI regarding possible EGD. Today he has anemia with hemoglobin of 6.3. Will transfuse and repeat H/H. Jules Montes De Oca MD Hospitalist.
[2017-11-08 00:34] LABS: MEAN CELL VOLUME 90.9 fl (80.0-105.0); MEAN CORPUSCULAR HEMOGLOBIN 32.6 pg (25.0-35.0); MEAN CORPUSCULAR HGB CONC 35.9 g/dl (31.0-37.0); MEAN PLATELET VOLUME 8.9 fl (7.0-11.0); RBC 2.76 10^6/uL (3.5-6.1); RED CELL DISTRIBUTION WIDTH 18.9 % (11.5-14.5); WHITE BLOOD COUNT 7.3 10^3/ul (4.5-11.0)
[2017-11-08] MEDS: Albumin Human 25% (25 gm/100 ml) IV SCH (06:01)
[2017-11-08 06:51] LABS: MEAN CELL VOLUME 90.9 fl (80.0-105.0); MEAN CORPUSCULAR HEMOGLOBIN 32.7 pg (25.0-35.0); RBC 2.75 10^6/uL (3.5-6.1); RED CELL DISTRIBUTION WIDTH 19.1 % (11.5-14.5); WHITE BLOOD COUNT 8.2 10^3/ul (4.5-11.0)
[2017-11-08 07:09] LABS: ALB/GLOB RATIO 1.5 (1.1-1.8); ALBUMIN 3.3 g/dL (3.0-4.8); CALCIUM 9.1 mg/dL (8.4-10.5)
[2017-11-08] MEDS: cefTRIAXone 2 GM IN NS 2 GM/100 ML BAG IVPB SCH (09:35)
--- NOTE | 2017-11-08 09:47 | PN ---
DATE: 11/08/2017 SUBJECTIVE: I examined Mr. Dupont this morning. He is a 62-year-old white male admitted after a syncopal episode. The patient has a history of decompensated cirrhosis and recurrent episodes of large-volume ascites, which required paracentesis. The patient has not had any recent episodes of hematemesis or rectal bleeding. His anemia has been treated with transfusion of packed cells. At the bedside this morning, the patient denies any abdominal pain. The abdomen is so full, but not grossly distended, and he is passing gas. PHYSICAL EXAMINATION VITAL SIGNS: I reviewed this patient's vital signs. HEENT: Noncontributory. LUNGS: Decreased breath sounds, basilar. HEART: Irregular rhythm. ABDOMEN: Mildly tense in all quadrants. No tenderness elicited. LABORATORY DATA: Reviewed; as of last night, H and H 9 and 25 with a platelet count of 69,000. Comprehensive metabolic profile significant for sodium of 126, BUN and creatinine 123 and 2.9. Bilirubin 4.1 and decrease in transaminases level 42/35 respectively. Gram stain of the paracentesis fluid, no organisms. OVERALL ASSESSMENT: This is a 62-year-old white male with decompensated cirrhosis, currently being treated for hepatorenal syndrome by our Renal Service. Treatment included octreotide and midodrine. He still has moderately severe electrolyte abnormalities including hyponatremia including as well elevated renal parameters, which have been improving on current regimen. The patient is currently not bleeding. His H and H as indicated above is 9 and 25 with platelet count 69,000. I initially had offered the patient an endoscopy today, but due to precaution issues related to bed bugs, I will defer the procedure at least till further notice. Albeit, the patient indicated that he had an endoscopic procedure in [place] within the past several weeks, not indicative of ulcerations, but could not indicate if portal gastropathy or gastric antral vascular ectasias were found on this procedure. Also could not indicate whether esophageal varices were found. I discussion with Dr. Montes De Oca yesterday, would be found most likely if the procedure was performed. We will continue on current regimen, especially the patient/s hematocrit must be kept much less than level of 30 to avoid possibility GI bleeding due to portal hypertension issues. On discussion with the patient today, the patient indicated he had not previously been evaluated for liver transplant; however, he is awaiting paperwork to have this expedited. David Irving DO
--- NOTE | 2017-11-08 10:51 | CP.PCM.PN ---
<Patti Portillo - Last Filed: 11/08/17 14:26> Subjective - Date & Time of Evaluation Date of Evaluation: 11/08/17 Time of Evaluation: 10:49 - Subjective Subjective: PGY-2 Progress note for hospitalist service patient seen and examined at bedside. No acute distress. Per nurse no acute events overnight. Patient is in isolation. He denies bleeding or black stools. He denies any pain , no fever, headache, dizziness. Objective - Vital Signs/Intake and Output Vital Signs (last 24 hours): Temp Pulse Resp BP Pulse Ox 98.1 F 78 19 110/61 97 11/08/17 06:00 11/08/17 06:00 11/08/17 06:00 11/08/17 06:00 11/08/17 06:00 Intake and Output: 11/08/17 11/08/17 06:59 18:59 Intake Total 925 Output Total 1500 Balance -575 - Medications Medications: Current Medications Calcium Acetate (Phoslo) 667 mg PO WM [facility] Last Admin: 11/08/17 09:35 Dose: 667 mg Ceftriaxone Sodium (Rocephin 2 Gm Ivpb) 2 gm in 100 mls @ 100 mls/hr IVPB DAILY [facility] PRN Reason: Protocol Last Admin: 11/08/17 09:35 Dose: 100 mls/hr Lactulose (Enulose) 20 gm PO HS [facility] Last Admin: 11/07/17 22:13 Dose: 20 gm Midodrine (Proamatine) 10 mg PO TID [facility] Last Admin: 11/08/17 09:35 Dose: 10 mg Octreotide Acetate (Sandostatin) 200 mcg SC Q8 [facility] Last Admin: 11/08/17 06:02 Dose: 200 mcg Pantoprazole Sodium (Protonix Inj) 40 mg IVP Q12 [facility] Last Admin: 11/08/17 09:34 Dose: 40 mg Rifaximin (Xifaxan) 550 mg PO BID [facility] PRN Reason: Protocol Last Admin: 11/08/17 09:35 Dose: 550 mg - Labs Labs: 11/08/17 06:30 11/08/17 06:30 PT 18.0 SECONDS (9.4-12.5) H 11/05/17 11:10 INR 1.55 (0.93-1.08) H 11/05/17 11:10 APTT 32.2 Seconds (25.1-36.5) 11/05/17 11:10 - Constitutional Appears: No Acute Distress - Head Exam Head Exam: ATRAUMATIC, NORMAL INSPECTION, NORMOCEPHALIC - Eye Exam Eye Exam: EOMI, Normal appearance - ENT Exam ENT Exam: Mucous Membranes Moist - Respiratory Exam Respiratory Exam: Clear to Ausculation Bilateral, NORMAL BREATHING PATTERN. absent: Rales, Rhonchi, Wheezes - Cardiovascular Exam Cardiovascular Exam: REGULAR RHYTHM, +S1, +S2. absent: Tachycardia - GI/Abdominal Exam GI & Abdominal Exam: Distended, Soft, Normal Bowel Sounds. absent: Tenderness - Extremities Exam Extremities Exam: Normal Inspection. absent: Pedal Edema, Tenderness - Neurological Exam Neurological Exam: Alert, Awake, Oriented x3 Assessment and Plan - Assessment and Plan (Free Text) Assessment: 62 yo M with PMH of alcoholic cirrhosis admitted for syncopal episode and several electrolyte abnormalities. Actively being treated for Nonoliguric Acute Kidney Injury likely due to Type 1 Hepatorenal syndrome and acute anemia s/p transfusion of 3 units PRBC. Plan: Acute renal failure with multiple electrolyte abnormalities; likely 2/2 type 1 HRS - Uremia improved; Cr slightly - Likely 2/2 type 1 hepatorenal syndrome, given clinical course and history; likely precipitated by large fluid shift due to large volume paracentesis - FENa and FEUrea very low, consistent with prerenal etiology, consistent with HRS - Continue midodrine 10mg PO TID and Octreotide 200mcg SC Q8, per nephro - Continue albumin infusion - Nephro on consult; appreciate recs Anemia - Patient was acutely anemic; transfused total of 3 units of PRBC, hgb has improved - patient reports no further episodes of melena - Likely chronic, with possible superimposed GIB - Continue IV PPI BID for possible GIB - Continue Rocephin for prophylaxis in cirrhotic with possible GIB - Recheck in AM lab - GI consulted for possible need for upper endoscopy tomorrow once patient is off isolation Alcoholic cirrhosis - Patient has increasing abdominal distention; admits to discomfort, but no pain - s/p Paracentesis 2500cc; cell count indicates unlikely SBP; pending further SAAG, gram stain, and culture - Mental status improved - Continue lactulose and rifaximin; titrate lactulose to 2-3 BM daily - Patient follows at [facility] for cirrhosis; will discuss with GI if patient is candidate for transplant/transfer - GI on consult; appreciate recs Syncope and fall - Likely 2/2 metabolic encephalopathy vs orthostasis 2/2 dehydration 2/2 renal failure and ascites - Neuro and cardio workup unremarkable - Maintain high risk fall precautions - BP stable - Cardio and neuro consulted; appreciate recs GI/DVT PPX - Protonix - SCDs <Jules Montes De Oca - Last Filed: 11/08/17 15:50> Objective - Vital Signs/Intake and Output Vital Signs (last 24 hours): Temp Pulse Resp BP Pulse Ox 98.1 F 78 19 110/61 97 11/08/17 06:00 11/08/17 06:00 11/08/17 06:00 11/08/17 06:00 11/08/17 06:00 Intake and Output: 11/08/17 11/08/17 06:59 18:59 Intake Total 925 Output Total 1500 Balance -575 - Medications Medications: Current Medications Calcium Acetate (Phoslo) 667 mg PO WM [facility] Last Admin: 11/08/17 13:26 Dose: 667 mg Ceftriaxone Sodium (Rocephin 2 Gm Ivpb) 2 gm in 100 mls @ 100 mls/hr IVPB DAILY [facility] PRN Reason: Protocol Last Admin: 11/08/17 09:35 Dose: 100 mls/hr Lactulose (Enulose) 20 gm PO HS [facility] Last Admin: 11/07/17 22:13 Dose: 20 gm Midodrine (Proamatine) 10 mg PO TID [facility] Last Admin: 11/08/17 13:27 Dose: 10 mg Octreotide Acetate (Sandostatin) 200 mcg SC Q8 [facility] Last Admin: 11/08/17 13:27 Dose: 200 mcg Pantoprazole Sodium (Protonix Inj) 40 mg IVP Q12 [facility] Last Admin: 11/08/17 09:34 Dose: 40 mg Rifaximin (Xifaxan) 550 mg PO BID [facility] PRN Reason: Protocol Last Admin: 11/08/17 09:35 Dose: 550 mg - Labs Labs: 11/08/17 06:30 11/08/17 06:30 PT 18.0 SECONDS (9.4-12.5) H 11/05/17 11:10 INR 1.55 (0.93-1.08) H 11/05/17 11:10 APTT 32.2 Seconds (25.1-36.5) 11/05/17 11:10 Attending/Attestation - Attestation I have personally seen and examined this patient.: Yes I have fully participated in the care of the patient.: Yes I have reviewed all pertinent clinical information, including history, physical exam and plan: Yes Notes (Text): 11/08/17 15:45 62 year old male with past medical history of cirrhosis who was admitted after syncopal episode. Found to have HRS, ARF, ascites and anemia. CT head was negative for acute findings. Carotid dopplers and echocardiogram were reviewed. He is being followed by neurology, cardiology, nephrology and GI. He was started on midodrine, albumin and octreotide. He is s/p paracentesis. He is on rifaxamin and lactulose. His renal function continues to improve. His anemia also improved after prbc transfusion. Plan is for possible EGD tomorrow if patient if off isolation. Jules Montes De Oca MD Hospitalist.
--- NOTE | 2017-11-08 14:17 | CP.PCM.PN ---
Subjective - Date & Time of Evaluation Date of Evaluation: 11/08/17 Time of Evaluation: 14:15 - Subjective Subjective: Assessment: stable Nonoliguric Acute Kidney Injury (N17.9) likely due to Type 1 Hepatorenal syndrome Anemia, Hyponatremia, Hyperkalemia, acidosis cirrhosis of liver with active smoker, etoh abuse Plan maintain hemodynamics stable. cr is stable, monitor I&Os continue wit octreotide, midodrine and albumin. lytes reviewed, sodium is improved today avoid large volume paracentesis anemia stable Physical Examination: General Appearance: Comfortable, in no acute respiratory distress, co-operative . ill appearing and debilitated, facial muscles wasted Head; Atraumatic, normocephalic ENT: no ulcers no thrush. Tongue is midline. Oropharynx: no rash or ulcers. EYES: Sclera is anicteric. Neck; supple no thyromegaly or bruit Lungs: Normal respiratory rate/effort. Breath sounds bilateral equal and clear Heart: Normal rate. s1s2 normal. No rub or gallop. Extremities: no edema. No varicose veins. chronic venosus stasis changes in legs Neurological: Patient is alert, awake and oriented to person, place and time. No focal deficit. Strength bilateral appropriate and equal. has asterixis Skin: Warm and dry. Normal turgor. No rash. Palpitation: Normal elasticity for age. has spider angiomas Abdomen: Abdomen is soft. Bowel sounds +. There is no abdominal tenderness, no guarding/rigidity no organomegaly. distended/ascitic Psych: normal insight and flat affect/mood MSK: no joint tenderness or swelling. Digits and nails normal, no deformity : kidney or bladder not palpable Objective - Vital Signs/Intake and Output Vital Signs (last 24 hours): Temp Pulse Resp BP Pulse Ox 98.1 F 78 19 110/61 97 11/08/17 06:00 11/08/17 06:00 11/08/17 06:00 11/08/17 06:00 11/08/17 06:00 Intake and Output: 11/08/17 11/08/17 06:59 18:59 Intake Total 925 Output Total 1500 Balance -575 - Medications Medications: Current Medications Calcium Acetate (Phoslo) 667 mg PO WM [facility] Last Admin: 11/08/17 13:26 Dose: 667 mg Ceftriaxone Sodium (Rocephin 2 Gm Ivpb) 2 gm in 100 mls @ 100 mls/hr IVPB DAILY [facility] PRN Reason: Protocol Last Admin: 11/08/17 09:35 Dose: 100 mls/hr Lactulose (Enulose) 20 gm PO HS [facility] Last Admin: 11/07/17 22:13 Dose: 20 gm Midodrine (Proamatine) 10 mg PO TID [facility] Last Admin: 11/08/17 13:27 Dose: 10 mg Octreotide Acetate (Sandostatin) 200 mcg SC Q8 [facility] Last Admin: 11/08/17 13:27 Dose: 200 mcg Pantoprazole Sodium (Protonix Inj) 40 mg IVP Q12 [facility] Last Admin: 11/08/17 09:34 Dose: 40 mg Rifaximin (Xifaxan) 550 mg PO BID [facility] PRN Reason: Protocol Last Admin: 11/08/17 09:35 Dose: 550 mg - Labs Labs: 11/08/17 06:30 11/08/17 06:30 PT 18.0 SECONDS (9.4-12.5) H 11/05/17 11:10 INR 1.55 (0.93-1.08) H 11/05/17 11:10 APTT 32.2 Seconds (25.1-36.5) 11/05/17 11:10
[2017-11-09 07:20] LABS: HEMOGLOBIN 9.8 g/dL (14.0-18.0); MEAN CELL VOLUME 92.7 fl (80.0-105.0); MEAN CORPUSCULAR HEMOGLOBIN 32.7 pg (25.0-35.0); MEAN CORPUSCULAR HGB CONC 35.3 g/dl (31.0-37.0); MEAN PLATELET VOLUME 9.5 fl (7.0-11.0); RED CELL DISTRIBUTION WIDTH 19.2 % (11.5-14.5); WHITE BLOOD COUNT 11.4 10^3/ul (4.5-11.0)
[2017-11-09 08:06] LABS: ALB/GLOB RATIO 1.5 (1.1-1.8); ALBUMIN 3.4 g/dL (3.0-4.8); CALCIUM 9.2 mg/dL (8.4-10.5)
[2017-11-09] MEDS: cefTRIAXone 2 GM IN NS 2 GM/100 ML BAG IVPB SCH (12:43)
--- NOTE | 2017-11-09 13:05 | CP.PCM.PN ---
Subjective - Date & Time of Evaluation Date of Evaluation: 11/09/17 Time of Evaluation: 07:30 Objective - Vital Signs/Intake and Output Vital Signs (last 24 hours): Temp Pulse Resp BP Pulse Ox 99.3 F 84 18 94/50 L 96 11/09/17 08:23 11/09/17 10:00 11/09/17 08:23 11/09/17 08:23 11/09/17 08:25 Intake and Output: 11/09/17 11/09/17 06:59 18:59 Intake Total 240 960 Output Total 850 300 Balance -610 660 - Medications Medications: Current Medications Calcium Acetate (Phoslo) 667 mg PO WM [facility] Last Admin: 11/09/17 12:41 Dose: 667 mg Lactulose (Enulose) 20 gm PO HS [facility] Last Admin: 11/08/17 21:56 Dose: 20 gm Midodrine (Proamatine) 10 mg PO TID [facility] Last Admin: 11/09/17 09:00 Dose: 10 mg Octreotide Acetate (Sandostatin) 200 mcg SC Q8 [facility] Last Admin: 11/09/17 05:53 Dose: 200 mcg Pantoprazole Sodium (Protonix Inj) 40 mg IVP Q12 [facility] Last Admin: 11/09/17 12:42 Dose: 40 mg Rifaximin (Xifaxan) 550 mg PO BID [facility] PRN Reason: Protocol Last Admin: 11/09/17 12:42 Dose: 550 mg - Labs Labs: 11/09/17 07:00 11/09/17 07:00 PT 18.0 SECONDS (9.4-12.5) H 11/05/17 11:10 INR 1.55 (0.93-1.08) H 11/05/17 11:10 APTT 32.2 Seconds (25.1-36.5) 11/05/17 11:10
[2017-11-09 15:08] VITALS: PULSE 87
--- NOTE | 2017-11-09 16:13 | CP.PCM.PN ---
Subjective - Date & Time of Evaluation Date of Evaluation: 11/09/17 Time of Evaluation: 16:12 - Subjective Subjective: Nephrology Consultation: Assessment: stable Nonoliguric Acute Kidney Injury (N17.9) likely due to Type 1 Hepatorenal syndrome: improving Anemia, Hyponatremia, Hyperkalemia, acidosis cirrhosis of liver with active smoker, etoh abuse Plan maintain hemodynamics stable. Patient not on ACEI/ARB due to CAMILO and high K. avoid aldactone as well continue with octreotide, midodrine medical management of hyperkalemia as needed basis GI following palliative care input appreciated Monitor Input/Output, daily weights and renal function with basic metabolic panel avoid correction in serum Na >6-8 meq/24 hrs avoid large volume paracentesis getting PRBC Dose meds/antibiotics for reduced GFR. Avoid fleets enema/magnesium based laxatives. Avoid nephrotoxins/NSAIDs/ iodinated contrast (unless needed emergently) Glycemic control Further work up/management as per primary team Patient stable for discharge from renal perspective been planned. Suggest to continue with octreotide and midodrine at discharge at current dosing. Follow- up in renal clinic in one week after discharge Thanks for allowing me to participate in care of your patient. Will follow patient with you. Please call if any Qs. d/w team Dr Lawrence Youngblood Office: [phone] HPI: Pt is a 62 M with hx of cirrhosis, chronic etoh abuse and active smoker presented with complaints of fall and dizzziness, syncope. found to have severe CAMILO and renal consulted Denies OTC/herbal meds or NSAIDs No recent iodinated contrast exposure. Noted obvious episodes of low BP. says had last alcohol drink in jul 2017 recently had large volume paracentesis ROS: Cardiovascular: No chest pain. Pulmonary: No shortness of breath Gastrointestinal: denies abdominal pain No nausea. No vomiting. Genitourinary: No pain while urinating. Denies blood in urine. reports improved UOP All other negative Physical Examination: General Appearance: Comfortable, in no acute respiratory distress, co-operative . ill appearing and debilitated, facial muscles wasted Vitals reviewed and noted as below Head; Atraumatic, normocephalic ENT: no ulcers no thrush. Tongue is midline. Oropharynx: no rash or ulcers. EYES: Pupils are equal, round and reactive to light accommodation. Eye muscles and extraocular movement intact. Sclera is anicteric. Neck; supple no lymphadenopathy, no thyromegaly or bruit Lungs: Normal respiratory rate/effort. Breath sounds bilateral equal and clear Heart: Normal rate. s1s2 normal. No rub or gallop. Extremities: no edema. No varicose veins. chronic venosus stasis changes in legs Neurological: Patient is alert, awake and oriented to person, place and time. No focal deficit. Strength bilateral appropriate and equal. has asterixis Skin: Warm and dry. Normal turgor. No rash. Palpitation: Normal elasticity for age. has spider angiomas Abdomen: Abdomen is soft. Bowel sounds +. There is no abdominal tenderness, no guarding/rigidity no organomegaly. distended/ascitic Psych: normal insight and flat affect/mood MSK: no joint tenderness or swelling. Digits and nails normal, no deformity : kidney or bladder not palpable Labs/imaging reviewed. Past medical history, past surgical history, family history, social history, allergy reviewed and noted as below Family hx: no hx of CKD. Rest non-contributory Objective - Vital Signs/Intake and Output Vital Signs (last 24 hours): Temp Pulse Resp BP Pulse Ox 98.4 F 87 17 116/74 96 11/09/17 12:00 11/09/17 12:00 11/09/17 12:00 11/09/17 12:00 11/09/17 08:25 Intake and Output: 11/09/17 11/09/17 06:59 18:59 Intake Total 240 960 Output Total 850 300 Balance -610 660 - Medications Medications: Current Medications Calcium Acetate (Phoslo) 667 mg PO WM [facility] Last Admin: 11/09/17 12:41 Dose: 667 mg Lactulose (Enulose) 20 gm PO HS [facility] Last Admin: 11/08/17 21:56 Dose: 20 gm Midodrine (Proamatine) 10 mg PO TID [facility] Last Admin: 11/09/17 14:14 Dose: 10 mg Octreotide Acetate (Sandostatin) 200 mcg SC Q8 [facility] Last Admin: 11/09/17 14:14 Dose: 200 mcg Pantoprazole Sodium (Protonix Inj) 40 mg IVP Q12 [facility] Last Admin: 11/09/17 12:42 Dose: 40 mg Rifaximin (Xifaxan) 550 mg PO BID [facility] PRN Reason: Protocol Last Admin: 11/09/17 12:42 Dose: 550 mg - Labs Labs: 11/09/17 07:00 11/09/17 07:00 PT 18.0 SECONDS (9.4-12.5) H 11/05/17 11:10 INR 1.55 (0.93-1.08) H 11/05/17 11:10 APTT 32.2 Seconds (25.1-36.5) 11/05/17 11:10
--- NOTE | 2017-11-09 17:42 | PN ---
DATE: 11/09/2017 SUBJECTIVE: I reviewed the clinical course of Mr. Dupont with the patient at bedside as well as with the nurse on the floor. The patient denies any hematemesis or gross rectal bleeding, also abdominal pain. Precautions for bed bugs were apparently taken off. LABORATORY DATA: Indicates his H and H count was stable; the last level of 9 and 25, platelet count was 65. His renal function has been improving with BUN and creatinine 104/2.2. His bilirubin is 5. Transaminases 44 and 35. His sodium is 132. The patient is overall improving since the H and H are stable. The patient is still here. He is endoscopy scheduled for Sunday at 8:30 in the morning - this being clinically warranted. Again, the patient is tentatively scheduled for endoscopic procedure on Sunday at 8:30 a.m. At the current time point, would maintain his current treatment regimen. David Irving DO
[2017-11-09 19:51] VITALS: BP 100/59; RESP 18; TEMP 97.6; O2SAT 97
--- NOTE | 2017-11-09 21:26 | CP.PCM.DIS ---
<Ari Geronimo - Last Filed: 11/09/17 21:20> Provider - Provider Date of Admission: 11/05/17 01:38 Attending physician: Jules Montes De Oca MD Primary care physician: NO PRIMARY CARE PROVIDER Consults: GI: Zelinski Nephro: Rylie Cardio: Elkind Neuro: Korya Time Spent in preparation of Discharge (in minutes): 65 Diagnosis - Discharge Diagnosis (1) Hepatorenal syndrome Status: Acute Priority: High (2) Cirrhosis Status: Chronic Priority: Medium (3) Acute kidney failure Status: Acute Priority: High (4) Laceration of head Status: Acute Priority: Low (5) Syncope Status: Acute Priority: High Hospital Course - Lab Results Lab Results: Micro Results 11/06/17 12:25 Body Fluid - Abdominal Cavity Gram Stain - Final 11/06/17 12:25 Body Fluid - Abdominal Cavity Body Fluid Culture - Preliminary NO GROWTH AFTER 2 DAYS Most Recent Lab Values WBC 11.4 10^3/ul (4.5-11.0) H D 11/09/17 07:00 RBC 3.00 10^6/uL (3.5-6.1) L 11/09/17 07:00 Hgb 9.8 g/dL (14.0-18.0) L 11/09/17 07:00 Hct 27.8 % (42.0-52.0) L 11/09/17 07:00 MCV 92.7 fl (80.0-105.0) 11/09/17 07:00 MCH 32.7 pg (25.0-35.0) 11/09/17 07:00 MCHC 35.3 g/dl (31.0-37.0) 11/09/17 07:00 RDW 19.2 % (11.5-14.5) H 11/09/17 07:00 Plt Count 71 10^3/uL (120.0-450.0) L 11/09/17 07:00 MPV 9.5 fl (7.0-11.0) 11/09/17 07:00 Gran % 74.8 % (50.0-68.0) H 11/05/17 11:10 Lymph % (Auto) 12.1 % (22.0-35.0) L 11/05/17 11:10 [place] % (Auto) 12.8 % (1.0-6.0) H 11/05/17 11:10 Eos % (Auto) 0.3 % (1.5-5.0) L 11/05/17 11:10 Baso % (Auto) 0.0 % (0.0-3.0) 11/05/17 11:10 Gran # 7.62 (1.4-6.5) H 11/05/17 11:10 Lymph # (Auto) 1.2 (1.2-3.4) 11/05/17 11:10 [place] # (Auto) 1.3 (0.1-0.6) H 11/05/17 11:10 Eos # (Auto) 0.0 (0.0-0.7) 11/05/17 11:10 Baso # (Auto) 0.00 K/mm3 (0.0-2.0) 11/05/17 11:10 Retic Count 2.53 % (0.5-1.5) H 11/05/17 02:20 Haptoglobin < 20.0 mg/dL (30.0-200.0) L 11/05/17 05:30 PT 18.0 SECONDS (9.4-12.5) H 11/05/17 11:10 INR 1.55 (0.93-1.08) H 11/05/17 11:10 APTT 32.2 Seconds (25.1-36.5) 11/05/17 11:10 Sodium 131 mmol/L (132-148) L 11/09/17 07:00 Potassium 4.2 mmol/L (3.6-5.0) 11/09/17 07:00 Chloride 96 mmol/L (98-107) L 11/09/17 07:00 Carbon Dioxide 24 mmol/L (21-33) 11/09/17 07:00 Anion Gap 15 (10-20) 11/09/17 07:00 BUN 96 mg/dL (7-21) H 11/09/17 07:00 Creatinine 1.9 mg/dl (0.8-1.5) H 11/09/17 07:00 Est GFR ( Amer) 44 11/09/17 07:00 Est GFR (Non-Af Amer) 36 11/09/17 07:00 Random Glucose 154 mg/dL (70-110) H 11/09/17 07:00 Serum Osmolality 312 mosm/kg (272-300) H 11/05/17 02:20 Calcium 9.2 mg/dL (8.4-10.5) 11/09/17 07:00 Phosphorus 2.7 mg/dL (2.5-4.5) 11/09/17 07:00 Magnesium 2.4 mg/dL (1.7-2.2) H 11/09/17 07:00 Iron 74 ug/dL (45-180) 11/05/17 02:20 TIBC 192 ug/dL (261-462) L 11/05/17 02:20 % Saturation 39 % (20-55) 11/05/17 02:20 Ferritin 566.0 ng/mL 11/05/17 02:20 Total Bilirubin 4.3 mg/dL (0.2-1.3) H 11/09/17 07:00 Direct Bilirubin 1.7 mg/dL (0.0-0.4) H 11/05/17 05:30 AST 44 U/L (17-59) 11/09/17 07:00 ALT 34 U/L (7-56) 11/09/17 07:00 Alkaline Phosphatase 56 U/L (38-126) 11/09/17 07:00 Ammonia 73 umol/L (9-33) H 11/05/17 02:20 Lactate Dehydrogenase 899 U/L (333-699) H 11/04/17 21:47 Total Creatine Kinase 127 U/L (35-230) 11/04/17 21:47 Troponin I 0.06 ng/mL 11/05/17 11:10 Total Protein 5.7 g/dL (5.8-8.3) L 11/09/17 07:00 Albumin 3.4 g/dL (3.0-4.8) 11/09/17 07:00 Globulin 2.3 gm/dL 11/09/17 07:00 Albumin/Globulin Ratio 1.5 (1.1-1.8) 11/09/17 07:00 Vitamin B12 945 pg/mL (239-931) H 11/05/17 02:20 Folate > 20.0 ng/mL 11/05/17 02:20 Urine Color Yellow (YELLOW) 11/05/17 02:45 Urine Appearance Sl cloudy (CLEAR) 11/05/17 02:45 Urine pH 6.0 (4.7-8.0) 11/05/17 02:45 Ur Specific [place] 1.020 (1.005-1.035) 11/05/17 02:45 Urine Protein 30 mg/dL (<30 mg/dL) H 11/05/17 02:45 Urine Glucose (UA) Negative mg/dL (NEGATIVE) 11/05/17 02:45 Urine Ketones Negative mg/dL (NEGATIVE) 11/05/17 02:45 Urine Blood Moderate (NEGATIVE) H 11/05/17 02:45 Urine Nitrate Negative (NEGATIVE) 11/05/17 02:45 Urine Bilirubin Negative (NEGATIVE) 11/05/17 02:45 Urine Urobilinogen 0.2 E.U./dL (<1 E.U./dL) 11/05/17 02:45 Ur Leukocyte Esterase Negative Ernie/uL (NEGATIVE) 11/05/17 02:45 Urine RBC 2 - 5 /hpf (0-2) 11/05/17 02:45 Urine WBC 0 - 2 /hpf (0-6) 11/05/17 02:45 Ur Epithelial Cells 0 - 2 /hpf (0-5) 11/05/17 02:45 Hyaline Casts 0 - 2 /hpf 11/05/17 02:45 Urine Osmolality 345 mosm/kg (300-1000) 11/05/17 14:15 Ur Random Creatinine 196 mg/dL 11/05/17 14:15 Ur Random Sodium < 5 meq/L 11/05/17 14:15 Ur Random Urea Nitrogn 467 mg/dL 11/05/17 14:15 Fluid Source Peritoneal/ascites 11/06/17 12:00 Fluid Appearance Bloody (CLEAR) 11/06/17 12:00 Fluid WBC 269.0 /uL (0.0-300.0) 11/06/17 12:00 Fluid RBC 37249.0 /uL (0.0-0.0) H 11/06/17 12:00 Fluid Tot Cell Count 100 (0-0) H 11/06/17 12:00 Fluid Neutrophils 45.0 % (0-0) H 11/06/17 12:00 Fluid Lymphocytes 55.0 % (0-0) H 11/06/17 12:00 Fld Monocyte/Macrophag TEST NOT PERFORMED 11/06/17 12:00 Fluid Comment Red color 11/06/17 12:00 Peritoneal Glucose 155 mg/dL 11/06/17 12:00 Stool Occult Blood Positive (NEGATIVE) H 11/06/17 03:06 Alcohol, Quantitative < 10 mg/dL (0-10) 11/04/17 21:47 Blood Type B POSITIVE 11/06/17 08:30 Blood Type Confirm B POSITIVE 11/06/17 08:55 Antibody Screen Negative 11/06/17 08:30 Crossmatch See Detail 11/06/17 08:30 BBK History Checked No verified bt 11/06/17 08:30 - Hospital Course Hospital Course: Pt is a 62 yo M with PMH of alcoholic cirrhosis who presented to [facility] due to fall 2/2 to syncopal episode at home. Patient had head CT which was unremarkable , as well as neuro and cardio workup which were negative. Patient was also noted to have multiple electrolyte abnormalities and acute renal failure, which did not improve with fluid resucitation. He was diagnosed with and treated for type I hepatorenal syndrome secondary to large volume paracentesis without albumin supplementation. Patient was treated with midodrine, octreotide, and IV albumin supplementation, with significant improvement in renal function and urine output. Patient was also noted to be acutely anemic during hospitalization , with several melanotic bowel movements, and was transfused total 4u PRBC, with improvement and stabilization of his H&H. He was seen by GI, who recommended outpatient endoscopy after patient was clinically improved and H&H was stable. He also recommended evaluation by and eventual transfer to liver center for transplant. During hospitalization, patient had 2500cc paracentesis, for symptomatic relief, and to rule out SBP, which was negative. Today, patient is much more awake and alert than on admission, and was ambulating around his room with assistance for bowel movements. He has no particular complaints. He denies chest pain, abdominal pain, shortness of breath , fever, chills, nausea, vomiting, diarrhea, constipation. He has maintained good urine output and continues to have improving renal function. Patient is homeless, though does have some support from his family members. Patient was given information for shelters before discharge, though he is being discharged to [facility] with plans to apply for long chain beamer rehab. Patient was also given instructions on follow up with GI, nephro, his PMD, and the liver clinic at [facility]. All questions were answered to the patient's satisfaction and patient was discharged to [facility]. Discharge Exam - Head Exam Head Exam: NORMAL INSPECTION, NORMOCEPHALIC - Eye Exam Eye Exam: EOMI, Normal appearance, PERRL Pupil Exam: NORMAL ACCOMODATION - ENT Exam ENT Exam: Mucous Membranes Moist - Respiratory Exam Respiratory Exam: Clear to PA & Lateral, NORMAL BREATHING PATTERN - Cardiovascular Exam Cardiovascular Exam: RRR, +S1, +S2 - GI/Abdominal Exam GI & Abdominal Exam: Distended, Normal Bowel Sounds, Soft. absent: Firm, Guarding, Rigid, Tenderness Additional comments: Positive fluid wave and shifting dullness - Extremities Exam Extremities exam: full ROM, normal inspection - Neurological Exam Neurological exam: Alert, CN II-XII Intact, Oriented x3 - Psychiatric Exam Psychiatric exam: Normal Affect, Normal Mood - Skin Skin Exam: Dry, Intact, Normal Color Discharge Plan - Follow Up Plan Condition: GUARDED Disposition: REHAB FACILITY/REHAB UNIT Instructions: Acute Kidney Failure (DC) Additional Instructions: Patient being discharged to [facility]. Patient will require continued follow up for outpatient EGD to r/o UGIB (which has resolved) and to assess for gastric/ esophageal varices. Patient will require follow up with GI and nephrology for hepatorenal syndrome, and continued management and titration of midodrine and octreotide. Patient will also require follow up and evaluation at a liver transplant center, and patient is known to the [facility] liver clinic, and should follow up there. Referrals: PCP,NO [Primary Care Provider] - <Jules Montes De Oca - Last Filed: 11/10/17 08:20> Provider - Provider Date of Admission: 11/05/17 01:38 Attending physician: Jules Montes De Oca MD Primary care physician: NO PRIMARY CARE PROVIDER Hospital Course - Lab Results Lab Results: Micro Results 11/06/17 12:25 Body Fluid - Abdominal Cavity Gram Stain - Final 11/06/17 12:25 Body Fluid - Abdominal Cavity Body Fluid Culture - Preliminary NO GROWTH AFTER 2 DAYS Most Recent Lab Values WBC 11.4 10^3/ul (4.5-11.0) H D 11/09/17 07:00 RBC 3.00 10^6/uL (3.5-6.1) L 11/09/17 07:00 Hgb 9.8 g/dL (14.0-18.0) L 11/09/17 07:00 Hct 27.8 % (42.0-52.0) L 11/09/17 07:00 MCV 92.7 fl (80.0-105.0) 11/09/17 07:00 MCH 32.7 pg (25.0-35.0) 11/09/17 07:00 MCHC 35.3 g/dl (31.0-37.0) 11/09/17 07:00 RDW 19.2 % (11.5-14.5) H 11/09/17 07:00 Plt Count 71 10^3/uL (120.0-450.0) L 11/09/17 07:00 MPV 9.5 fl (7.0-11.0) 11/09/17 07:00 Gran % 74.8 % (50.0-68.0) H 11/05/17 11:10 Lymph % (Auto) 12.1 % (22.0-35.0) L 11/05/17 11:10 [place] % (Auto) 12.8 % (1.0-6.0) H 11/05/17 11:10 Eos % (Auto) 0.3 % (1.5-5.0) L 11/05/17 11:10 Baso % (Auto) 0.0 % (0.0-3.0) 11/05/17 11:10 Gran # 7.62 (1.4-6.5) H 11/05/17 11:10 Lymph # (Auto) 1.2 (1.2-3.4) 11/05/17 11:10 [place] # (Auto) 1.3 (0.1-0.6) H 11/05/17 11:10 Eos # (Auto) 0.0 (0.0-0.7) 11/05/17 11:10 Baso # (Auto) 0.00 K/mm3 (0.0-2.0) 11/05/17 11:10 Retic Count 2.53 % (0.5-1.5) H 11/05/17 02:20 Haptoglobin < 20.0 mg/dL (30.0-200.0) L 11/05/17 05:30 PT 18.0 SECONDS (9.4-12.5) H 11/05/17 11:10 INR 1.55 (0.93-1.08) H 11/05/17 11:10 APTT 32.2 Seconds (25.1-36.5) 11/05/17 11:10 Sodium 131 mmol/L (132-148) L 11/09/17 07:00 Potassium 4.2 mmol/L (3.6-5.0) 11/09/17 07:00 Chloride 96 mmol/L (98-107) L 11/09/17 07:00 Carbon Dioxide 24 mmol/L (21-33) 11/09/17 07:00 Anion Gap 15 (10-20) 11/09/17 07:00 BUN 96 mg/dL (7-21) H 11/09/17 07:00 Creatinine 1.9 mg/dl (0.8-1.5) H 11/09/17 07:00 Est GFR ( Amer) 44 11/09/17 07:00 Est GFR (Non-Af Amer) 36 11/09/17 07:00 Random Glucose 154 mg/dL (70-110) H 11/09/17 07:00 Serum Osmolality 312 mosm/kg (272-300) H 11/05/17 02:20 Calcium 9.2 mg/dL (8.4-10.5) 11/09/17 07:00 Phosphorus 2.7 mg/dL (2.5-4.5) 11/09/17 07:00 Magnesium 2.4 mg/dL (1.7-2.2) H 11/09/17 07:00 Iron 74 ug/dL (45-180) 11/05/17 02:20 TIBC 192 ug/dL (261-462) L 11/05/17 02:20 % Saturation 39 % (20-55) 11/05/17 02:20 Ferritin 566.0 ng/mL 11/05/17 02:20 Total Bilirubin 4.3 mg/dL (0.2-1.3) H 11/09/17 07:00 Direct Bilirubin 1.7 mg/dL (0.0-0.4) H 11/05/17 05:30 AST 44 U/L (17-59) 11/09/17 07:00 ALT 34 U/L (7-56) 11/09/17 07:00 Alkaline Phosphatase 56 U/L (38-126) 11/09/17 07:00 Ammonia 73 umol/L (9-33) H 11/05/17 02:20 Lactate Dehydrogenase 899 U/L (333-699) H 11/04/17 21:47 Total Creatine Kinase 127 U/L (35-230) 11/04/17 21:47 Troponin I 0.06 ng/mL 11/05/17 11:10 Total Protein 5.7 g/dL (5.8-8.3) L 11/09/17 07:00 Albumin 3.4 g/dL (3.0-4.8) 11/09/17 07:00 Globulin 2.3 gm/dL 11/09/17 07:00 Albumin/Globulin Ratio 1.5 (1.1-1.8) 11/09/17 07:00 Vitamin B12 945 pg/mL (239-931) H 11/05/17 02:20 Folate > 20.0 ng/mL 11/05/17 02:20 Urine Color Yellow (YELLOW) 11/05/17 02:45 Urine Appearance Sl cloudy (CLEAR) 11/05/17 02:45 Urine pH 6.0 (4.7-8.0) 11/05/17 02:45 Ur Specific [place] 1.020 (1.005-1.035) 11/05/17 02:45 Urine Protein 30 mg/dL (<30 mg/dL) H 11/05/17 02:45 Urine Glucose (UA) Negative mg/dL (NEGATIVE) 11/05/17 02:45 Urine Ketones Negative mg/dL (NEGATIVE) 11/05/17 02:45 Urine Blood Moderate (NEGATIVE) H 11/05/17 02:45 Urine Nitrate Negative (NEGATIVE) 11/05/17 02:45 Urine Bilirubin Negative (NEGATIVE) 11/05/17 02:45 Urine Urobilinogen 0.2 E.U./dL (<1 E.U./dL) 11/05/17 02:45 Ur Leukocyte Esterase Negative Ernie/uL (NEGATIVE) 11/05/17 02:45 Urine RBC 2 - 5 /hpf (0-2) 11/05/17 02:45 Urine WBC 0 - 2 /hpf (0-6) 11/05/17 02:45 Ur Epithelial Cells 0 - 2 /hpf (0-5) 11/05/17 02:45 Hyaline Casts 0 - 2 /hpf 11/05/17 02:45 Urine Osmolality 345 mosm/kg (300-1000) 11/05/17 14:15 Ur Random Creatinine 196 mg/dL 11/05/17 14:15 Ur Random Sodium < 5 meq/L 11/05/17 14:15 Ur Random Urea Nitrogn 467 mg/dL 11/05/17 14:15 Fluid Source Peritoneal/ascites 11/06/17 12:00 Fluid Appearance Bloody (CLEAR) 11/06/17 12:00 Fluid WBC 269.0 /uL (0.0-300.0) 11/06/17 12:00 Fluid RBC 93399.0 /uL (0.0-0.0) H 11/06/17 12:00 Fluid Tot Cell Count 100 (0-0) H 11/06/17 12:00 Fluid Neutrophils 45.0 % (0-0) H 11/06/17 12:00 Fluid Lymphocytes 55.0 % (0-0) H 11/06/17 12:00 Fld Monocyte/Macrophag TEST NOT PERFORMED 11/06/17 12:00 Fluid Albumin 1.0 g/dL 11/06/17 12:00 Fluid Comment Red color 11/06/17 12:00 Peritoneal Glucose 155 mg/dL 11/06/17 12:00 Stool Occult Blood Positive (NEGATIVE) H 11/06/17 03:06 Alcohol, Quantitative < 10 mg/dL (0-10) 11/04/17 21:47 Blood Type B POSITIVE 11/06/17 08:30 Blood Type Confirm B POSITIVE 11/06/17 08:55 Antibody Screen Negative 11/06/17 08:30 Crossmatch See Detail 11/06/17 08:30 BBK History Checked No verified bt 11/06/17 08:30 Attending/Attestation - Attestation I have personally seen and examined this patient.: Yes I have fully participated in the care of the patient.: Yes I have reviewed all pertinent clinical information, including history, physical exam and plan: Yes Notes (Text): 11/09/17 62 year old male with past medical history of cirrhosis who was admitted after syncopal episode. He was found to have HRS, ARF, ascites and anemia. CT head was negative for acute findings. Carotid dopplers and echocardiogram were reviewed. He was seen followed by neurology, cardiology, nephrology and GI. He was started on midodrine, albumin and octreotide. He is s/p paracentesis. He is on rifaxamin and lactulose. His renal function has improved since admission. His anemia also improved after prbc transfusion. He is cleared by GI with recommendation of outpatient EGD and liver transplant evaluation. Patient is discharged to [facility]. Follow up with pmd. Follow up with GI for elective EGD. Follow up with nephrology. Follow up with [facility] for liver transplant evaluation. Counselled on alcohol abstinence. Jules Montes De Oca MD Hospitalist.
== END 2017-11-09 23:30 | DRG 556 ==
LOC: ED 20:48 → ERH 11-05 01:38 → 3RSO 11-05 03:17
PROVIDERS: ADMIT Internal Medicine; ATTEND Internal Medicine
PROC: 0HQ0XZZ Repair Scalp Skin, External Approach (ICD-10-PCS; 2017-11-05)
PROC: 0W9G3ZX Drainage of Peritoneal Cavity, Percutaneous Approach, Diagnostic (ICD-10-PCS; principal; 2017-11-06)
PROC: 30233N1 Transfusion of Nonautologous Red Blood Cells into Peripheral Vein, Percutaneous Approach (ICD-10-PCS; 2017-11-06)
DX: K76.7 Hepatorenal syndrome (principal); N17.9 Acute kidney failure, unspecified; K72.90 Hepatic failure, unspecified without coma; K70.31 Alcoholic cirrhosis of liver with ascites; E87.5 Hyperkalemia; E87.1 Hypo-osmolality and hyponatremia; E87.8 Other disorders of electrolyte and fluid balance, not elsewhere classified; E86.0 Dehydration; K92.2 Gastrointestinal hemorrhage, unspecified; D50.0 Iron deficiency anemia secondary to blood loss (chronic); E86.1 Hypovolemia; D69.6 Thrombocytopenia, unspecified; E87.2 Acidosis; S01.01XA Laceration without foreign body of scalp, initial encounter; G93.41 Metabolic encephalopathy; R55 Syncope and collapse; F17.200 Nicotine dependence, unspecified, uncomplicated; F10.10 Alcohol abuse, uncomplicated; Y90.0 Blood alcohol level of less than 20 mg/100 ml; W18.30XA Fall on same level, unspecified, initial encounter; Y92.009 Unspecified place in unspecified non-institutional (private) residence as the place of occurrence of the external cause